=== PATIENT | female | born 1965 | race Caucasian/White ===

== ENCOUNTER 2016-07-21 08:57 | Emergency (ER) | payer BC, OTHER ==
[2016-07-21 09:10] VITALS: BP 145/109
--- NOTE | 2016-07-21 10:06 | CR ---
Cervical spine: AP, lateral and odontoid views of the cervical spine were obtained. Comparison: No previous cervical spine imaging. Multiple surgical clips are seen within the neck. Minimal spondylolisthesis is noted at C3-C4 and C4-C5. Mild disc space narrowing is noted at C6-C7. Vertebral body heights are maintained. No acute fracture or other abnormality is seen. Impression: 1. Slight spondylolisthesis at C3-C4 and C4-C5 which is felt compatible with degenerative apophyseal change. 2. Mild disc space narrowing at C6-C7. 3. Other incidental findings. Diagnostic code #2
--- NOTE | 2016-07-21 10:06 | CR ---
Lumbar spine: AP, lateral and coned-down lateral views centered to the lumbosacral junction were obtained. Mild disc space narrowing is noted at T12-L1. Anterior osteophytes noted at T12-L1. Mild anterior osteophytes are noted at L1-L2. Vertebral body heights and disc spaces otherwise are preserved. Pedicles are intact. Transverse and spinous processes are intact. No subluxation or fracture is seen. Surgical clips are seen from prior cholecystectomy. Impression: 1. Slight degenerative change as noted above. Nothing acute is appreciated on three-view lumbar spine study. Diagnostic code #2
--- NOTE | 2016-07-21 10:14 | EDM.PDOC ---
ED HPI GENERAL MEDICAL PROBLEM - General Chief Complaint: Back Pain or Injury Stated Complaint: BACK INJURY Time Seen by Provider: 07/21/16 09:14 Source of Information: Reports: Patient, RN Notes Reviewed - History of Present Illness INITIAL COMMENTS - FREE TEXT/NARRATIVE: 51-year-old female comes in with neck and back discomfort. 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 She also has been having some neck discomfort he did have some mild tingling in both hands intermittently but that has been more of a chronic problem for her. She did see a chiropractor day or 2 ago felt like that did help numbness and tingling but she does continue to have some 80 discomfort of her neck so continues to have a low back discomfort. She does not have sharp or shooting pain into the legs. She has felt some numbness in both feet but not severe. No fever or chills. no voiding sx. 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, excedrin Lower Back Pain Score (Numeric/FACES): 8 - Related Data Allergies Allergy/AdvReac Type Severity Reaction Status Date / Time codeine Allergy Anaphylactic Verified 07/21/16 09:06 Shock diphenhydramine HCl Allergy Excitabilit Verified 07/21/16 09:06 [From Benadryl] y hydrocodone Allergy Anaphylactic Verified 07/21/16 09:06 Shock oxycodone Allergy Anaphylactic Verified 07/21/16 09:06 Shock promethazine HCl Allergy Excitabilit Verified 07/21/16 09:06 [From Phenergan] y Sulfa (Sulfonamide Allergy Excitabilit Verified 07/21/16 09:06 Antibiotics) y Home Meds: Home Meds Meclizine [Antivert] 25 mg PO TID PRN #15 tab 05/18/14 [Rx] Nitrofurantoin Monohyd/M-Cryst [Macrobid 100 mg Capsule] 100 mg PO BID #20 capsule 05/18/14 [Rx] Ondansetron [Zofran ODT] 4 mg PO Q6H PRN #10 tab.dis 05/18/14 [Rx] Thyroid,Pork [[place] Thyroid] 90 mg PO DAILY 05/18/14 [History] traMADol [Ultram] 50 mg PO ASDIRECTED PRN 05/18/14 [History] Naproxen [Naprosyn] 500 mg PO Q12HR #14 tablet 07/21/16 [Rx] Past Medical History Genitourinary History: Reports: Other (See Below) Other Genitourinary History: kidney surgery Endocrine/Metabolic History: Reports: Other (See Below) Other Endocrine/Metabolic History: thyroid CA Oncologic (Cancer) History: Reports: Thyroid - Past Surgical History GI Surgical History: Reports: Cholecystectomy Endocrine Surgical History: Reports: Thyroidectomy Social & Family History - Tobacco Use Smoking Status *Q: Never Smoker - Caffeine Use Caffeine Use: Reports: Soda - Recreational Drug Use Recreational Drug Use: No ED ROS GENERAL - Review of Systems Review Of Systems: See Below Constitutional: Denies: Fever, Chills HEENT: Reports: No Symptoms Respiratory: Denies: Shortness of Breath Cardiovascular: Denies: Chest Pain GI/Abdominal: Denies: Abdominal Pain, Nausea, Vomiting : Reports: No Symptoms Musculoskeletal: Reports: Neck Pain, Back Pain Skin: Denies: Rash Neurological: Reports: Numbness (Has had intermittent numbness and tingling of her hands and feet) ED EXAM,LOWER BACK PAIN/INJURY - Physical Exam Exam: See Below General Appearance: Alert, No Apparent Distress Throat/Mouth: Normal Inspection Head: Atraumatic. No: Facial Swelling Neck: Supple, Full Range of Motion, Other (For mild soft tissue tenderness bilateral base of neck) Respiratory/Chest: No Respiratory Distress Back Exam: Paraspinal Tenderness (Mild tenderness right low back), Other (No visible spasm, no swelling, no erythema). No: Vertebral Tenderness Extremities: Normal Inspection, Normal Range of Motion Neurological: Alert, No Motor/Sensory Deficits, Other (Mild back tightness with straight leg raising is does not shoot pain down into either lower extremity) Course - Vital Signs Last Recorded V/S: Last Vital Signs Temp 97.1 F 07/21/16 09:06 Pulse 72 07/21/16 09:06 Resp 16 07/21/16 09:06 BP 145/109 H 07/21/16 09:06 Pulse Ox 99 07/21/16 09:06 - Re-Assessments/Exams Free Text/Narrative Re-Assessment/Exam: 07/21/16 11:44 have prescribed Naprosyn to take 500 mg twice a day for one week , she can take Tylenol 3 times daily in addition alternating dosages and also she can take tramadol as previously prescribed as needed for breakthrough pain. I recommended alternating ice and heat. 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 . She would like to do that. I've advised her to do no lifting whatsoever but certainly no lifting more than 20 pounds for the next week. I've offered physical therapy but she would prefer to keep working with a chiropractor. She should than continue to work with a chiropractor until discomfort resolves. Departure - Departure Time of Disposition: 10:10 Disposition: Home, Self-Care 01 Condition: fair Clinical Impression: Strain of lumbar spine Qualifiers: Encounter type: initial encounter Qualified Code(s): S39.012A - Strain of muscle, fascia and tendon of lower back, initial encounter - Discharge Information Prescriptions: Naproxen [Naprosyn] 500 mg PO Q12HR #14 tablet Instructions: Lumbosacral Strain Referrals: Donna Trevino PA-C [Primary Care Provider] - Forms: ED Department Discharge, Return to Work/School Form Additional Instructions: Alternate ice and heat to low back and neck as needed, Naprosyn 500 mg twice daily, take that with food so as not to upset her stomach, Tylenol 1000 mg 2-3 times daily,you may take tramadol in addition to the Naprosyn and Tylenol as needed for further pain relief, continue to work with your chiropractor to try get this to heal more quickly, no lifting more than 20 pounds for the next week , followup with your regular medical provider as needed or return to ED as needed if symptoms worsening in any way. See your chiropractor tomorrow if possible and continue to see your chiropractor until discomfort resolves.
== END 2016-07-21 10:30 | disposition home or self-care (01) ==
LOC: JD.ED 08:57
DX: S39.012A Strain of muscle, fascia and tendon of lower back, initial encounter (principal); E89.0 Postprocedural hypothyroidism; Z85.850 Personal history of malignant neoplasm of thyroid; Z90.49 Acquired absence of other specified parts of digestive tract; Z79.899 Other long term (current) drug therapy; Z88.5 Allergy status to narcotic agent; Z88.6 Allergy status to analgesic agent; Z88.8 Allergy status to other drugs, medicaments and biological substances; X50.0XXA Overexertion from strenuous movement or load, initial encounter; Y92.69 Other specified industrial and construction area as the place of occurrence of the external cause; Y99.0 Civilian activity done for income or pay
CPT/HCPCS: 72040; 72040-26; 72100; 72100-26; 99282; 99283

== ENCOUNTER 2017-08-10 07:25 | Emergency (ER) | payer OTHER, BC ==
[2017-08-10 07:46] VITALS: BP 118/91
[2017-08-10] MEDS ORDERED: Ibuprofen 600 MG Tab PO ONE (08:30)
[2017-08-10] MEDS ORDERED: Sodium Chloride 0.9% 1,000 ML IV ONE (08:30)
[2017-08-10] MEDS ORDERED: Orphenadrine 100 MG Tab.ER PO STA (08:30)
[2017-08-10] MEDS ORDERED: Haloperidol Lactate 5 MG/ML SDV IM ONE (08:30)
[2017-08-10] MEDS ORDERED: Benztropine 1 MG Tab PO STA (08:30)
[2017-08-10] MEDS ORDERED: Ondansetron 4 MG/2 ML SDV IVPUSH ONE (08:30)
--- NOTE | 2017-08-10 08:42 | EDM.PDOC ---
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 She has a history of chronic neck pain and chronic bilateral hand tingling, and is status post a prior low back injury on 07/18/2016. She states that at 20:30 last night, she was helping a patient move backwards, when the patient fell backwards into Ms. Kendall's arms. Ms. Kendall states that she strained her lower back as she lowered the patient to the floor, preventing the patient from falling. She now presents with numbness to her entire left lower extremity, pain to her left groin, and spasms to her mid back. She also states that she developed a headache right after the event. The headache is bitemporal. It is tingling and sharp in character. She has photophobia, but no phonophobia. No visual changes. No nausea or emesis. Other than the tingling and numbness to her left lower extremity, she has no other neurologic changes. She states that this headache is similar to prior migraines, but that this cannot be migraine, as she has not had one in years. The patient states that she took Advil around 23:00 last night, then Excedrin around 03:00 this morning. She states that she also took tramadol. The patient's PCP is Fe Hinton. Upper Back Pain Score (Numeric/FACES): 7 - Related Data Allergies Allergy/AdvReac Type Severity Reaction Status Date / Time codeine Allergy Anaphylactic Verified 07/21/16 09:06 Shock diphenhydramine HCl Allergy Excitabilit Verified 07/21/16 09:06 [From Benadryl] y hydrocodone Allergy Anaphylactic Verified 07/21/16 09:06 Shock oxycodone Allergy Anaphylactic Verified 07/21/16 09:06 Shock promethazine HCl Allergy Excitabilit Verified 07/21/16 09:06 [From Phenergan] y Sulfa (Sulfonamide Allergy Excitabilit Verified 07/21/16 09:06 Antibiotics) y Home Meds: Home Meds Thyroid,Pork [[place] Thyroid] 90 mg PO DAILY 05/18/14 [History] traMADol [Ultram] 50 mg PO ASDIRECTED PRN 05/18/14 [History] Orphenadrine [Norflex] 1 tab PO Q12H PRN #14 tab.er 08/10/17 [Rx] Past Medical History HEENT History: Reports: Impaired Vision Other HEENT History: wear contacts 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: 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: Musculoskeletal History: Reports: Arthritis, Back Pain, Chronic, Neck Pain, Chronic Neurological History: Reports: Migraines Endocrine/Metabolic History: Reports: Hypothyroidism (following thyroidectomy) Oncologic (Cancer) History: Reports: Thyroid (2006) - Past Surgical History GI Surgical History: Reports: Cholecystectomy Female Surgical History: Reports: Endometrial Ablation, Tubal Ligation, Other (See Below) (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 ED EXAM, GENERAL - Physical Exam Exam: See Below Exam Limited By: No Limitations General Appearance: Alert, WD/WN, No Apparent Distress Eye Exam: Bilateral Eye: EOMI, Normal Inspection Ears: Normal External Exam, Hearing Grossly Normal Nose: Normal Inspection, No Blood Throat/Mouth: Normal Inspection, Normal Lips, Normal Voice, No Airway Compromise Head: Atraumatic, Normocephalic Neck: Normal Inspection, Full Range of Motion Respiratory/Chest: No Respiratory Distress Back Exam: Other (No visible abnormality to the patient's back, such as swelling , erythema, ecchymosis, or abrasion. The patient reports mild tenderness to the mid back, at approximately the T8 level, with increased tenderness to the left paraspinous muscles at that level. The patient is able to flex the spine to 90 , and extend to approximately 20. She is able to tilt the spine bilaterally to about 30, and twist the spine bilaterally to about 45. Unilateral knee bend is normal bilaterally. Straight leg raise is negative to 90 bilaterally.) Extremities: Non-Tender, Other (Neurovascular status of the bilateral lower extremity is normal.) Neurological: Alert, Oriented, Normal Cognition, No Motor/Sensory Deficits Psychiatric: Normal Affect Skin Exam: Warm, Dry, Intact, Normal Color, No Rash Course - Vital Signs Last Recorded V/S: Last Vital Signs Temp 36.1 C 08/10/17 07:42 Pulse 83 08/10/17 07:42 Resp 20 08/10/17 07:42 BP 118/91 H 08/10/17 07:42 Pulse Ox 100 08/10/17 07:42 - Orders/Labs/Meds Meds: Medications Discontinued Medications Generic Name Dose Route Start Last Admin Trade Name Freq PRN Reason Stop Dose Admin Benztropine Mesylate 1 mg 08/10/17 08:30 08/10/17 08:54 Cogentin PO 08/10/17 08:31 Not Given ONETIME STA Haloperidol Lactate 5 mg 08/10/17 08:30 08/10/17 08:55 Haldol IM 08/10/17 08:31 Not Given ONETIME ONE Sodium Chloride 1,000 mls @ 999 mls/hr 08/10/17 08:30 08/10/17 08:55 Normal Saline IV 08/10/17 09:30 Not Given ONETIME ONE Ibuprofen 600 mg 08/10/17 08:30 08/10/17 08:53 Motrin PO 08/10/17 08:31 600 mg ONETIME ONE Administration Ondansetron HCl 4 mg 08/10/17 08:30 08/10/17 08:55 Zofran IVPUSH 08/10/17 08:31 Not Given ONETIME ONE Orphenadrine Citrate 100 mg 08/10/17 08:30 08/10/17 08:53 Norflex PO 08/10/17 08:31 100 mg ONETIME STA Administration - Re-Assessments/Exams Free Text/Narrative Re-Assessment/Exam: 08/10/17 08:40 The patient appears to have 2 issues: Her mid back pain with left lower extremity tingling and numbness, and her headache. The patient believes that the two are one and the same problem, as they both began at the same time, however, anatomically and physiologically, I would not be able to explain that. With respect to the patient's mid back pain and left lower extremity tingling, the patient, from a clinical standpoint, has a muscle spasm in her mid back. I cannot explain the tingling to her left lower extremity, however, there are no findings on physical exam to suggest a herniated disc. I am recommending Norflex and ibuprofen, and the patient agreed. I am further recommending that the patient stay active, particularly with swimming, if possible. With respect to the patient's headache, her symptoms are consistent with a migraine, indeed, the patient states that her symptoms are just like prior migraines. She does not, however, believe that her current headache is migrainous, as she has not had a migraine in many years. Nevertheless, the patient has agreed to treatment for a migraine with IM Haldol, oral Cogentin, IV fluid, and IV Zofran. 08/10/17 09:28 Notified by Celena MACARIO that the patient accepted the Norflex and ibuprofen, but refused the Haldol, Cogentin, IV fluid, and Zofran. I discussed this with the patient. She would like to be discharged home with a note for work for tomorrow. Departure - Departure Time of Disposition: 09:28 Disposition: Home, Self-Care 01 Condition: Good Clinical Impression: Back muscle spasm, Migraine headache without aura - Discharge Information Prescriptions: Orphenadrine [Norflex] 1 tab PO Q12H PRN #14 tab.er PRN Reason: Muscle Spasm Instructions: Muscle Cramps and Spasms, [id number], Migraine Headache Referrals: Fe Hinton PA [Primary Care Provider] - Forms: ED Department Discharge, ED Return to Work/School Form Additional Instructions: You were seen in the emergency room for mid-back pain, left lower extremity tingling, and a headache. Based on your history and physical examination, your mid-back pain is due to a muscle spasm. You have been started on the muscle relaxant Norflex. A prescription for Norflex has been sent to the [facility], located in the [email or web address] store. Take one tablet every 12 hours, as prescribed. You have also been started on ibuprofen. Take 2-3 tablets (400-600 mg) every 8 hours, with food, as needed for discomfort. The cause of your left lower extremity tingling sensation is not clear, however , based on your history and physical examination, it is not due to a herniated intervertebral disc. If your symptoms persist, or worsen, you may need a MRI of your back. A note for work has been written for you. It is very important that you stay active. Swimming is best, but walking is good , as well. Based on your history, your headache is MOST LIKELY migrainous in etiology. Treatment for a migraine headache was offered, but declined. We recommend you get plenty of rest today in a dark, quiet, place. Stay well hydrated. Follow-up with your PCP, Fe Hinton, as needed. If any other problems, please do not hesitate to return to the ER.
== END 2017-08-10 09:49 | disposition home or self-care (01) ==
LOC: JD.ED 07:25
DX: G43.009 Migraine without aura, not intractable, without status migrainosus (principal); M62.830 Muscle spasm of back; Z88.5 Allergy status to narcotic agent; Z88.8 Allergy status to other drugs, medicaments and biological substances; Z88.2 Allergy status to sulfonamides
CPT/HCPCS: 99283; A9270

== ENCOUNTER 2017-11-04 12:08 | Emergency (ER) | payer BC ==
[2017-11-04 12:15] VITALS: BP 133/95
[2017-11-04] MEDS ORDERED: HYDROmorphone 0.5 MG/0.5 ML SYRINGE IVPUSH ONE (12:39)
[2017-11-04] MEDS ORDERED: Ondansetron 4 MG/2 ML SDV IVPUSH ONE (12:39)
[2017-11-04] MEDS ORDERED: Alum Hydrox/Mag Hydrox/Simeth 30 ML, Lidocaine 2% 15 ML PO ONE ×2 (12:39)
--- NOTE | 2017-11-04 12:43 | EDM.PDOC ---
ED HPI GENERAL MEDICAL PROBLEM - General Chief Complaint: Abdominal Pain Stated Complaint: [facility] Time Seen by Provider: 11/04/17 12:28 Source of Information: Reports: Patient History Limitations: Reports: No Limitations - History of Present Illness INITIAL COMMENTS - FREE TEXT/NARRATIVE: Patient is a 52-year-old female presents ED complaining of epigastric/ paramedical abd pain. This started at approximately 5:15 this morning. Pain is sharp in nature with no radiation. Pain is constant with waxing and waning. Pain is worse with movement and also palpation. Pain is relieved with stretching. There's been no known activities or trauma that precipitated this. She has some acid reflux but states that is normal. She has been constipated for quite some time. States she had a bowel movement today with only 3 hard pieces of stool present. No diarrhea or blood present. She's been mildly nauseated with no emesis. Denies any chest pain, fever, shortness of breath, dysuria, or any additional complaints. She's had her gallbladder removed. She's never had EGD or colonoscopy. She does not smoke use alcohol or recreational drugs. She has a history of tubal ligation. No bariatric surgeries. 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 (see below) Other Treatments MEMORIAL COUNSELOR: zofan Upper Abdomen Pain Score (Numeric/FACES): 9 - Related Data Allergies Allergy/AdvReac Type Severity Reaction Status Date / Time codeine Allergy Anaphylactic Verified 07/21/16 09:06 Shock diphenhydramine HCl Allergy Excitabilit Verified 07/21/16 09:06 [From Benadryl] y hydrocodone Allergy Anaphylactic Verified 07/21/16 09:06 Shock oxycodone Allergy Anaphylactic Verified 07/21/16 09:06 Shock promethazine HCl Allergy Excitabilit Verified 07/21/16 09:06 [From Phenergan] y Sulfa (Sulfonamide Allergy Excitabilit Verified 07/21/16 09:06 Antibiotics) y Home Meds: Home Meds Thyroid,Pork [Dale Thyroid] 90 mg PO DAILY 05/18/14 [History] traMADol [Ultram] 50 mg PO ASDIRECTED PRN 05/18/14 [History] Orphenadrine [Norflex] 1 tab PO Q12H PRN #14 tab.er 08/10/17 [Rx] Dicyclomine [Bentyl] 10 mg PO QID PRN #12 cap 11/04/17 [Rx] Ketorolac [Toradol] 10 mg PO Q6H PRN #4 tab 11/04/17 [Rx] Latanoprost [Xalatan 0.005% Ophth Soln] 1 drop TOP BEDTIME 11/04/17 [History] Ondansetron [Zofran ODT] 4 mg PO Q6H PRN #12 tab.dis 11/04/17 [Rx] Past Medical History HEENT History: Reports: Impaired Vision Other HEENT History: wear contacts Genitourinary History: Reports: Other (See Below) Other Genitourinary History: kidney surgery 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: Musculoskeletal History: Reports: Arthritis, Back Pain, Chronic, Neck Pain, Chronic Neurological History: Reports: Migraines Endocrine/Metabolic History: Reports: Hypothyroidism Other Endocrine/Metabolic History: thyroid CA Oncologic (Cancer) History: Reports: Thyroid - Past Surgical History GI Surgical History: Reports: Cholecystectomy Female Surgical History: Reports: Endometrial Ablation, Tubal Ligation, Other (See Below) Endocrine Surgical History: Reports: Thyroidectomy Social & Family History - Tobacco Use Smoking Status *Q: Never Smoker - Caffeine Use Caffeine Use: Reports: Soda - Living Situation & Occupation Living situation: Reports: , with Significant Other (Boyfriend) 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 Denies: Black Stool, Bloody Stool, Diarrhea, Decreased Appetite, Difficulty Swallowing, Hematemesis, Hematochezia, Melena, Mucous in Stool, Stool Incontinence, Vomiting : Reports: No Symptoms Musculoskeletal: Reports: No Symptoms Skin: Reports: No Symptoms ED EXAM, GI/ABD - Physical Exam Exam: See Below Exam Limited By: No Limitations General Appearance: Alert, WD/WN, No Apparent Distress Ears: Hearing Grossly Normal Nose: Normal Inspection Throat/Mouth: Normal Voice, No Airway Compromise Neck: Normal Inspection, Supple Respiratory/Chest: No Respiratory Distress, Lungs Clear, Normal Breath Sounds, Chest Non-Tender Cardiovascular: Normal Peripheral Pulses, Regular Rate, Rhythm, No Murmur GI/Abdominal Exam: Soft, No Organomegaly, No Distention, Tender (Epigastric periumbilical region. Negative McBurney's point.), Abnormal Bowel Sounds ( Hyperactive) Back Exam: Normal Inspection. No: CVA Tenderness (L), CVA Tenderness (R) Extremities: Normal Inspection Neurological: Alert, Oriented, CN II-XII Intact, Normal Cognition, No Motor/ Sensory Deficits Psychiatric: Normal Affect, Normal Mood Skin Exam: Warm, Dry, Intact, Normal Color, No Rash Course - Vital Signs Last Recorded V/S: Last Vital Signs Temp 97.7 F 11/04/17 12:14 Pulse 82 11/04/17 12:14 Resp 20 11/04/17 12:14 BP 133/95 H 11/04/17 12:14 Pulse Ox 99 11/04/17 12:14 - Orders/Labs/Meds Labs: Laboratory Tests 11/04/17 11/04/17 Range/Units 13:50 13:50 WBC 5.09 (3.98-10.04) K/mm3 RBC 4.38 (3.98-5.22) M/mm3 Hgb 13.4 (11.2-15.7) gm/L Hct 38.6 (34.1-44.9) % MCV 88.1 (79.4-94.8) fl MCH 30.6 (25.6-32.2) pg MCHC 34.7 (32.2-35.5) g/dl RDW Std Deviation 38.2 (36.4-46.3) fL Plt Count 258 (182-369) K/mm3 MPV 9.5 (9.4-12.3) fl Neutrophils % (Manual) 88 H (40-60) % Band Neutrophils % 0 (0-10) % Lymphocytes % (Manual) 10 L (20-40) % Atypical Lymphs % 0 % Monocytes % (Manual) 1 L (2-10) % Eosinophils % (Manual) 1 (0.7-5.8) % Basophils % (Manual) 0 L (0.1-1.2) Platelet Estimate Adequate RBC Morph Comment Normal Sodium 142 (136-145) mEq/L Potassium 3.7 (3.5-5.1) mEq/L Chloride 107 (98-107) mEq/L Carbon Dioxide 27 (21-32) mEq/L Anion Gap 11.7 (5-15) BUN 13 (7-18) mg/dL Creatinine 0.8 (0.55-1.02) mg/dL Est Cr Clr Drug Dosing 67.27 mL/min Estimated GFR (MDRD) > 60 (>60) mL/min BUN/Creatinine Ratio 16.3 (14-18) Glucose 116 H (74-106) mg/dL Calcium 9.4 (8.5-10.1) mg/dL Total Bilirubin 0.5 (0.2-1.0) mg/dL AST 23 (15-37) U/L ALT 19 (14-59) U/L Alkaline Phosphatase 80 (46-116) U/L C-Reactive Protein 0.2 (<1.0) mg/dL Total Protein 6.8 (6.4-8.2) g/dl Albumin 3.6 (3.4-5.0) g/dl Globulin 3.2 gm/dL Albumin/Globulin Ratio 1.1 (1-2) Lipase 114 (73-393) U/L Meds: Medications Discontinued Medications Generic Name Dose Route Start Last Admin Trade Name Freq PRN Reason Stop Dose Admin Al Hydroxide/Mg Hydroxide 30 0 ml 11/04/17 12:39 11/04/17 13:02 ml/ Lidocaine HCl 15 ml PO 11/04/17 12:40 45 ml ONETIME ONE Administration Diatrizoate Meglum/Diatrizoate Sod 120 ml 11/04/17 14:58 11/04/17 15:18 Gastrografin 37% PO 11/04/17 14:59 90 ml ONETIME ONE Administration Hydromorphone HCl 0.5 mg 11/04/17 12:39 11/04/17 12:59 Dilaudid IVPUSH 11/04/17 12:40 0.5 mg ONETIME ONE Administration Sodium Chloride 1,000 mls @ 500 mls/hr 11/04/17 12:45 11/04/17 12:59 Normal Saline IV 500 mls/hr ASDIRECTED MEENA Administration Iopamidol 100 ml 11/04/17 14:58 11/04/17 15:19 Isovue-300 (61%) IVPUSH 11/04/17 14:59 100 ml ONETIME ONE Administration Ondansetron HCl 4 mg 11/04/17 12:39 11/04/17 13:05 Zofran IVPUSH 11/04/17 12:40 4 mg ONETIME ONE Administration Sodium Chloride 10 ml 11/04/17 14:58 11/04/17 15:19 Saline Flush FLUSH 10 ml ONETIME PRN Administration IV FLUSH - Re-Assessments/Exams Free Text/Narrative Re-Assessment/Exam: IV established with normal saline 500 mL per hour. Dilaudid 0.5 mg IVP and Zofran 4 mg IVP ordered. GI cocktail by mouth.. Initial labs and studies will include: CBC, chem 14, CRP, lipase, UA, and 2 view of the abdomen. X-ray of the abdomen shows some dilated small bowel concerning for obstruction. Few air fluid levels. Patient obtained no relief with the GI cocktail. Suggest is not gastritis related. CT the abdomen and pelvis will be ordered with oral and IV contrast. Labs reviewed: CBC essentially normal. CMP was essentially normal as well. CRP 0.2. Lipase 114. Ordered CT of the abdomen and pelvis with oral and IV contrast. CT abdomen and pelvis impression: Nothing acute is appreciated on CT study of the abdomen and pelvis. 1545 reassessment, patient is resting comfortably in bed. Pain is well- controlled. Vital signs are stable. She is ready be discharged home. She is arranging a ride.The patient remained hemodynamically stable while under my care in the E.D. I discussed the concerning symptoms for which to returnto the E.D. with the patient. The patient verbalized understanding. All questions were answered. Departure - Departure Time of Disposition: 16:00 Disposition: Home, Self-Care 01 Condition: Good Clinical Impression: Abdominal pain of unknown cause Nausea & vomiting Qualifiers: Vomiting type: unspecified Vomiting Intractability: non-intractable Qualified Code(s): R11.2 - Nausea with vomiting, unspecified - Discharge Information Prescriptions: Dicyclomine [Bentyl] 10 mg PO QID PRN #12 cap PRN Reason: Abdominal Pain Ketorolac [Toradol] 10 mg PO Q6H PRN #4 tab PRN Reason: Pain (Severe 7-10) Ondansetron [Zofran ODT] 4 mg PO Q6H PRN #12 tab.dis PRN Reason: Nausea Instructions: Abdominal Pain, Adult, [id number], Nausea and Vomiting, Adult Referrals: Hafsa Hinton PA [Primary Care Provider] - Forms: ED Department Discharge Additional Instructions: Do not have clear diagnosis for abdominal discomfort. You had no relief with the GI cocktail suggesting this was not related to gastritis. Labs and CT study of the abdomen were essentially normal. Relief of discomfort was obtained with IV Dilaudid. On discharge continue taking the tramadol as prescribed for pain. May utilize Bentyl one tablet every 6 hours for abd pain as well. Zofran 1 tablet every 6 hours for nausea and vomiting. I also prescribed a short course of Toradol one tab every 6 hours for pain as well. Please take the Toradol with plenty of water and food. Follow-up with your PCP this coming week for reevaluation if symptoms persist. Suggest liquid diet for the next 24 hours advancing then to a bland diet for 24 hours then to a normal diet thereafter as tolerated. Please return back to ED if you develop any new or worsening symptoms. No driving today.
[2017-11-04] MEDS ORDERED: Sodium Chloride 0.9% 1,000 ML IV SCH (12:45)
[2017-11-04] MEDS ORDERED: Diatrizoate Meglumine/Diatrizoate Sodium 37% 120 ML Bottle PO ONE (14:58)
[2017-11-04] MEDS ORDERED: Iopamidol 612 MG/ML 100 ML Bottle IVPUSH ONE (14:58)
[2017-11-04] MEDS ORDERED: Sodium Chloride 0.9% 10 ML Syringe FLUSH PRN (14:58)
--- NOTE | 2017-11-04 16:24 | CT ---
CT abdomen and pelvis Technique: Multiple axial sections were obtained from above the dome of the diaphragm inferiorly through the pubic symphysis. Intravenous contrast was utilized. Small amount of oral contrast is seen. Delayed images were obtained through the bladder. Comparison: Prior CT abdomen and pelvis exam of 05/28/10. Findings: Visualized lung bases are clear. Liver shows no discrete abnormality. Minimal intrahepatic biliary duct dilatation is seen. Common bile duct measures about 6.9 mm. These findings are likely due to residual change from prior cholecystectomy. Kidneys show symmetric contrast enhancement. Stable scarring noted within the left kidney. Adrenal glands show no nodule. Pancreas is within normal limits. Spleen appears normal. Aorta shows no aneurysm with mild atherosclerotic change. No retroperitoneal adenopathy or mesenteric abnormalities are seen. No pelvic mass or adenopathy is seen. Appendix is not visualized with certainty. No free fluid or inflammatory change is seen within the abdomen or pelvis. Bone window settings were reviewed which appears within normal limits for the patient's age. Impression: 1. Incidental findings. Nothing acute is appreciated on CT study of the abdomen and pelvis. Diagnostic code #2
--- NOTE | 2017-11-08 14:07 | CR ---
Abdomen: Supine and upright views of the abdomen were obtained. Dilated proximal small bowel loops are seen. This appears as a small bowel obstruction on the plain film exam but appears less prominent on subsequent CT exam and may represent slight ileus. Please correlate with the patient's symptoms. Surgical clips are seen from prior cholecystectomy. Bowel gas pattern is otherwise unremarkable. No free air is seen. Bony structures are unremarkable. Impression: 1. Dilated proximal small bowel as described above. Diagnostic code #3
== END 2017-11-04 16:33 | disposition home or self-care (01) ==
LOC: SUPCPDRO 12:08 → JD.ED 12:08
DX: R10.10 Upper abdominal pain, unspecified (principal); R11.2 Nausea with vomiting, unspecified; Z88.5 Allergy status to narcotic agent; Z98.51 Tubal ligation status; Z88.2 Allergy status to sulfonamides; Z88.8 Allergy status to other drugs, medicaments and biological substances; Z79.899 Other long term (current) drug therapy
CPT/HCPCS: 36415; 74019; 74177; 80053; 83690; 85007; 85027; 86140; 96361; 96374; 96375; 99285; A9270; J1170; J2405; J7040; J7050; Q9963; Q9967; 99284

== ENCOUNTER 2019-05-11 08:14 | Emergency (ER) | payer OTHER, BC ==
[2019-05-11 08:27] VITALS: BP 130/98; PULSE 70
--- NOTE | 2019-05-11 08:53 | EDM.PDOC ---
ED HPI GENERAL MEDICAL PROBLEM - General Chief Complaint: Back Pain or Injury Stated Complaint: BACK PAIN Time Seen by Provider: 05/11/19 08:26 Source of Information: Reports: Patient History Limitations: Reports: No Limitations - History of Present Illness INITIAL COMMENTS - FREE TEXT/NARRATIVE: The patient presents with upper low back pain. This started on Tuesday. She was at work and slipped and fell on some papers that fell on the floor. She did not hit her head or hurt her neck. She does have pain to the upper low back. She has no numbness or weakness. She has no bowel or bladder problems. Onset: Sudden Duration: Day(s): Location: Reports: Back Quality: Reports: Sharp Severity: Moderate Improves with: Reports: Immobilization Worsens with: Reports: Movement Context: Reports: Trauma (Slipped and fell and landed on her back) Associated Symptoms: Reports: No Other Symptoms Middle Back Pain Score (Numeric/FACES): 4 - Related Data Allergies Allergy/AdvReac Type Severity Reaction Status Date / Time codeine Allergy Anaphylactic Verified 05/11/19 08:27 Shock diphenhydramine HCl Allergy Excitabilit Verified 05/11/19 08:27 [From Benadryl] y hydrocodone Allergy Anaphylactic Verified 05/11/19 08:27 Shock oxycodone Allergy Anaphylactic Verified 05/11/19 08:27 Shock promethazine HCl Allergy Excitabilit Verified 05/11/19 08:27 [From Phenergan] y Sulfa (Sulfonamide Allergy Excitabilit Verified 05/11/19 08:27 Antibiotics) y Home Meds: Home Meds Thyroid,Pork [Conifer Thyroid] 90 mg PO DAILY 05/18/14 [History] traMADol [Ultram] 50 mg PO ASDIRECTED PRN 05/18/14 [History] Eye Dropvfor Glaucoma 1 drop EYEBOTH BEDTIME 05/11/19 [History] Orphenadrine [Norflex] 100 mg PO BID PRN #20 tab 05/11/19 [Rx] Past Medical History HEENT History: Reports: Impaired Vision Other HEENT History: wear contacts Genitourinary History: Reports: Other (See Below) Other Genitourinary History: kidney 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: Musculoskeletal History: Reports: Arthritis, Back Pain, Chronic, Neck Pain, Chronic Neurological History: Reports: Migraines Endocrine/Metabolic History: Reports: Hypothyroidism Other Endocrine/Metabolic History: thyroid CA Oncologic (Cancer) History: Reports: Thyroid - Past Surgical History GI Surgical History: Reports: Cholecystectomy Female Surgical History: Reports: Endometrial Ablation, Tubal Ligation, Other (See Below) Endocrine Surgical History: Reports: Thyroidectomy Social & Family History - Tobacco Use Smoking Status *Q: Never Smoker - Caffeine Use Caffeine Use: Reports: Soda - Recreational Drug Use Recreational Drug Use: No - Living Situation & Occupation Living situation: Reports: , with Significant Other (Boyfriend) 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 GENERAL - Review of Systems Review Of Systems: See Below Constitutional: Reports: No Symptoms HEENT: Reports: No Symptoms Respiratory: Reports: No Symptoms Cardiovascular: Reports: No Symptoms Endocrine: Reports: No Symptoms GI/Abdominal: Reports: No Symptoms : Reports: No Symptoms Musculoskeletal: Reports: Back Pain ED EXAM,LOWER BACK PAIN/INJURY - Physical Exam Exam: See Below Exam Limited By: No Limitations General Appearance: Alert, No Apparent Distress Ears: Normal External Exam Nose: Normal Inspection Head: Atraumatic, Normocephalic Neck: Normal Inspection Respiratory/Chest: No Respiratory Distress, Lungs Clear, Normal Breath Sounds Cardiovascular: Regular Rate, Rhythm, No Edema, No Murmur GI/Abdominal: Soft, Non-Tender, No Organomegaly, No Mass Back Exam: Vertebral Tenderness (upper low back) Extremities: Normal Inspection Course - Vital Signs Last Recorded V/S: Last Vital Signs Temp 96.9 F 05/11/19 08:23 Pulse 70 05/11/19 08:23 Resp 18 05/11/19 08:23 BP 130/98 H 05/11/19 08:23 Pulse Ox 100 05/11/19 08:23 - Orders/Labs/Meds Orders: Active Orders 24 hr Category Date Time Status Lumbar Spine 2 or 3V [CR] Stat Exams 05/11/19 08:45 Taken - Re-Assessments/Exams Free Text/Narrative Re-Assessment/Exam: 05/11/19 08:53 I have ordered an x-ay of her L-spine. 05/11/19 09:20 The x-ray looks good. I will get her on some norflex. Departure - Departure Time of Disposition: 09:25 Disposition: Home, Self-Care 01 Condition: Good Clinical Impression: Fall Qualifiers: Encounter type: initial encounter Qualified Code(s): W19.XXXA - Unspecified fall, initial encounter Low back pain Qualifiers: Chronicity: acute Back pain laterality: midline Sciatica presence: without sciatica Qualified Code(s): M54.5 - Low back pain - Discharge Information *PRESCRIPTION DRUG MONITORING PROGRAM REVIEWED*: No *COPY OF PRESCRIPTION DRUG MONITORING REPORT IN PATIENT MIGUEL: No Prescriptions: Orphenadrine [Norflex] 100 mg PO BID PRN #20 tab PRN Reason: Pain Referrals: Denise Dalal PA-C [Primary Care Provider] - 1 Week Forms: ED Department Discharge Additional Instructions: Take motrin or tylenol fro pain. Take the norflex 2 times per day as needed for pain. Please return if you are worse. Sepsis Event Note - Evaluation Sepsis Screening Result: No Definite Risk - Focused Exam Vital Signs: Vital Signs Temp Pulse Resp BP Pulse Ox 05/11/19 08:23 96.9 F 70 18 130/98 H 100 Date Exam was Performed: 05/11/19 Time Exam was Performed: 09:20 - My Orders Last 24 Hours: My Active Orders 05/11/19 08:45 Lumbar Spine 2 or 3V [CR] Stat - Assessment/Plan Last 24 Hours: My Active Orders 05/11/19 08:45 Lumbar Spine 2 or 3V [CR] Stat
--- NOTE | 2019-05-11 11:35 | CR ---
Lumbar spine: AP and lateral views of the lumbar spine were obtained. Comparison: Prior lumbar spine plain film study of 07/21/16. Disc space narrowing is noted at T12-L1. Other disc spaces are maintained within the lumbar spine. Minimal anterior osteophytes are noted at T12-L1. Pedicles are intact. Transverse and spinous processes appear intact. No subluxation or acute fracture is appreciated. Surgical clips are noted from prior cholecystectomy. Impression: 1. Slight degenerative change. 2. Nothing acute is appreciated on two-view lumbar spine study. Diagnostic code #2 This report was dictated in [place] Standard Time
== END 2019-05-11 09:42 | disposition home or self-care (01) ==
LOC: JD.ED 08:14
DX: M54.5 Low back pain (principal); E03.9 Hypothyroidism, unspecified; C73 Malignant neoplasm of thyroid gland; Z88.5 Allergy status to narcotic agent; Z88.8 Allergy status to other drugs, medicaments and biological substances; Z88.2 Allergy status to sulfonamides; Z79.899 Other long term (current) drug therapy; Z90.89 Acquired absence of other organs; W01.0XXA Fall on same level from slipping, tripping and stumbling without subsequent striking against object, initial encounter
CPT/HCPCS: 72100; 72100-26; 99283

== ENCOUNTER 2021-02-14 08:51 | Emergency (ER) | payer BC ==
[2021-02-14] MEDS ORDERED: Ondansetron 4 MG/2 ML SDV IVPUSH ONE (09:25)
[2021-02-14] MEDS ORDERED: Sodium Chloride 0.9% 10 ML Syringe FLUSH PRN (09:25)
[2021-02-14] MEDS ORDERED: Sodium Chloride 0.9% 1,000 ML IV SCH (09:30)
[2021-02-14] MEDS ORDERED: Pantoprazole 40 MG Vial IVPUSH ONE (09:34)
--- NOTE | 2021-02-14 09:42 | EDM.PDOC ---
ED HPI GENERAL MEDICAL PROBLEM - General Chief Complaint: Gastrointestinal Problem Stated Complaint: VOMITING BLOOD IN STOOL Time Seen by Provider: 02/14/21 09:26 Source of Information: Reports: Patient History Limitations: Reports: No Limitations - History of Present Illness INITIAL COMMENTS - FREE TEXT/NARRATIVE: The patient presents with abdominal discomfort and bloody stools. This started on . 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 She has been on augmentin for 4 days. Two days ago she started with looses stools and then she developed blood mixed in the stool. She has some mild epigastric discomfort. She has some nausea but no vomiting. She is also dizzy. She has no fever, chills, cough, chest pain, or shortness of breath. She was taking ibuprofen for the tooth pain. Onset: Gradual Duration: Day(s): (3) Location: Reports: Abdomen Quality: Reports: Other (discomfort) Severity: Mild Improves with: Reports: None Worsens with: Reports: None Associated Symptoms: Reports: Nausea/Vomiting. Denies: Chest Pain, Cough, Fever/Chills, Headaches, Shortness of Breath Upper Abdomen Pain Score (Numeric/FACES): 2 - Related Data Allergies Allergy/AdvReac Type Severity Reaction Status Date / Time codeine Allergy Anaphylactic Verified 02/14/21 09:29 Shock diphenhydramine HCl Allergy Excitabilit Verified 02/14/21 09:29 [From Benadryl] y hydrocodone Allergy Anaphylactic Verified 02/14/21 09:29 Shock oxycodone Allergy Anaphylactic Verified 02/14/21 09:29 Shock promethazine HCl Allergy Excitabilit Verified 02/14/21 09:29 [From Phenergan] y Sulfa (Sulfonamide Allergy Excitabilit Verified 02/14/21 09:29 Antibiotics) y Home Meds: Home Meds Thyroid,Pork [[place] Thyroid] 90 mg PO DAILY 05/18/14 [History] traMADol [Ultram] 50 mg PO TID PRN 05/18/14 [History] Amoxicillin/Clavulanate K [Augmentin 875-125 MG] 125 - 875 mg PO BID 02/14/21 [History] Aspirin/Acetaminophen/Caffeine [Headache Relief Gelcap] 1 tab PO ASDIRECTED PRN 02/14/21 [History] Brimonidine [Alphagan P 0.1% Ophth Soln] 1 drop EYEBOTH BEDTIME 02/14/21 [History] Famotidine 20 mg PO DAILY 02/14/21 [History] Ibuprofen 200 mg PO ASDIRECTED PRN 02/14/21 [History] Omeprazole Magnesium [Prilosec Otc] 40 mg PO DAILY #30 tablet. 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: Musculoskeletal History: Reports: Arthritis, Back Pain, Chronic, Neck Pain, Chronic Neurological History: Reports: Migraines Endocrine/Metabolic History: Reports: Hypothyroidism Other Endocrine/Metabolic History: thyroid CA Oncologic (Cancer) History: Reports: Thyroid - Past Surgical History GI Surgical History: Reports: Cholecystectomy Female Surgical History: Reports: Endometrial Ablation, Tubal Ligation, Other (See Below) Endocrine Surgical History: Reports: Thyroidectomy Social & Family History - Tobacco Use Tobacco Use Status *Q: Never Tobacco User - Caffeine Use Caffeine Use: Reports: Coffee - Recreational Drug Use Recreational Drug Use: No - Living Situation & Occupation Living situation: Reports: , with Significant Other (Boyfriend) 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 Denies: Vomiting : Reports: No Symptoms Musculoskeletal: Reports: No Symptoms ED EXAM, GI/ABD - Physical Exam Exam: See Below Exam Limited By: No Limitations General Appearance: Alert, No Apparent Distress Ears: Normal External Exam Nose: Normal Inspection Head: Atraumatic, Normocephalic Neck: Normal Inspection Respiratory/Chest: No Respiratory Distress, Lungs Clear, Normal Breath Sounds Cardiovascular: Regular Rate, Rhythm, No Edema, No Murmur GI/Abdominal Exam: Soft, Non-Tender, No Organomegaly, No Mass Back Exam: Normal Inspection Extremities: Normal Inspection Course - Vital Signs Last Recorded V/S: Last Vital Signs Temp 97.3 F 02/14/21 09:06 Pulse 110 H 02/14/21 09:06 Resp 18 02/14/21 09:06 BP 102/90 02/14/21 09:06 Pulse Ox 100 02/14/21 09:06 Orthostatic Blood Pressure [ 83/56 Standing] Orthostatic Blood Pressure [ 105/74 Sitting] Orthostatic Blood Pressure [ 100/73 Supine] - Orders/Labs/Meds Orders: Active Orders 24 hr Category Date Time Status Orthostatic Vital Signs [RC] ASDIRECTED Care 02/14/21 09:26 Active Peripheral IV Care [RC] . DIRECTED Care 02/14/21 09:26 Active STOOL CULTURE/SHIGA TOXIN [MREF] Stat Lab 02/14/21 10:10 Ordered Sodium Chloride 0.9% [Saline Flush] Med 02/14/21 09:25 Active 10 ml FLUSH ASDIRECTED PRN Peripheral IV Insertion Adult [OM.PC] Stat Oth 02/14/21 09:26 Ordered Medication Orders Sodium Chloride (Sodium Chloride 0.9% 10 Ml Syringe) 10 ml FLUSH ASDIRECTED PRN PRN Reason: Keep Vein Open Last Admin: 02/14/21 09:26 Dose: 10 ml Documented by: SHAKA Labs: Laboratory Tests 02/14/21 02/14/21 02/14/21 Range/Units 09:25 09:25 10:10 WBC 4.81 (3.98-10.04) K/mm3 RBC 2.54 L (3.98-5.22) M/mm3 Hgb 7.8 L D (11.2-15.7) gm/dl Hct 23.1 L (34.1-44.9) % MCV 90.9 (79.4-94.8) fl MCH 30.7 (25.6-32.2) pg MCHC 33.8 (32.2-35.5) g/dl RDW Std Deviation 39.8 (36.4-46.3) fL Plt Count 232 (182-369) K/mm3 MPV 10.0 (9.4-12.3) fl Neut % (Auto) 52.0 (34.0-71.1) % Lymph % (Auto) 41.6 (19.3-51.7) % [place] % (Auto) 5.6 (4.7-12.5) % Eos % (Auto) 0.6 L (0.7-5.8) Baso % (Auto) 0.2 (0.1-1.2) % Neut # (Auto) 2.50 (1.56-6.13) K/mm3 Lymph # (Auto) 2.00 (1.18-3.74) K/mm3 [place] # (Auto) 0.27 (0.24-0.36) K/mm3 Eos # (Auto) 0.03 L (0.04-0.36) K/mm3 Baso # (Auto) 0.01 (0.01-0.08) K/mm3 Sodium 140 (136-145) mEq/L Potassium 3.1 L (3.5-5.1) mEq/L Chloride 107 (98-107) mEq/L Carbon Dioxide 25 (21-32) mEq/L Anion Gap 11.1 (5-15) BUN 24 H (7-18) mg/dL Creatinine 0.8 (0.55-1.02) mg/dL Est Cr Clr Drug Dosing 64.95 mL/min Estimated GFR (MDRD) > 60 (>60) mL/min BUN/Creatinine Ratio 30.0 H (14-18) Glucose 123 H (70-99) mg/dL Calcium 8.0 L (8.5-10.1) mg/dL Magnesium 1.7 L (1.8-2.4) mg/dL Total Bilirubin 0.3 (0.2-1.0) mg/dL AST 18 (15-37) U/L ALT 17 (14-59) U/L Alkaline Phosphatase 44 L (46-116) U/L C-Reactive Protein <0.2 (<1.0) mg/dL Total Protein 5.9 L (6.4-8.2) g/dl Albumin 3.3 L (3.4-5.0) g/dl Globulin 2.6 gm/dL Albumin/Globulin Ratio 1.3 (1-2) Lipase 67 L (73-393) U/L HCG, Quant 3.0 mIU/mL C.difficile [id number] Presumptive negative C. difficile Tox (PCR) Negative Meds: Medications Generic Name Dose Route Start Last Admin Trade Name Freq PRN Reason Stop Dose Admin Sodium Chloride 10 ml 02/14/21 09:25 02/14/21 09:26 Sodium Chloride 0.9% 10 Ml Syringe FLUSH 10 ml ASDIRECTED PRN Administration Keep Vein Open Discontinued Medications Generic Name Dose Route Start Last Admin Trade Name Gracia PRN Reason Stop Dose Admin Sodium Chloride 1,000 mls @ 999 mls/hr 02/14/21 09:30 02/14/21 09:52 Normal Saline IV 02/14/21 10:29 999 mls/hr Q1H MEENA Administration Ondansetron HCl 4 mg 02/14/21 09:25 02/14/21 09:46 Ondansetron 4 Mg/2 Ml Sdv IVPUSH 02/14/21 09:26 4 mg ONETIME ONE Administration Pantoprazole Sodium 80 mg 02/14/21 09:34 02/14/21 09:48 Pantoprazole 40 Mg Vial IVPUSH 02/14/21 09:35 80 mg BOLUS ONE Administration - Re-Assessments/Exams Free Text/Narrative Re-Assessment/Exam: 02/14/21 09:44 I ordered an IV NS 1L bolus, zofran 4mg IV, protonix 80mg IV, labs and stool studies. 02/14/21 11:39 Her Hgb was low at 7.8. It was normal at 12 over a year ago. Her K was a little low at 3.1. Her magnesium was 1.7. Her lipase was normal. Her C-dif was negative. She feels better. She had some black stool now. She wants to go home and try it. I will get her on prilosec and have her stop using the ibuprofen. She still has a dental infection and I feel it is safe to take the augmentin. Departure - Departure Time of Disposition: 11:45 Disposition: Home, Self-Care 01 Condition: Good Clinical Impression: Dental abscess, Pain, dental, GI bleed due to NSAIDs - Discharge Information *PRESCRIPTION DRUG MONITORING PROGRAM REVIEWED*: Not Applicable *COPY OF PRESCRIPTION DRUG MONITORING REPORT IN PATIENT MIGUEL: Not Applicable Prescriptions: Omeprazole Magnesium [Prilosec Otc] 40 mg PO DAILY #30 tablet. Referrals: PCP,None [Primary Care Provider] - Denise Dalal PA-C [Physician Manager Adult] - 2 Days Forms: ED Department Discharge Additional Instructions: Stop taking the ibuprofen. Try tylenol or tramadol for your pain. Take the augmentin as prescribed for your dental abscess. Take the prilosec 40mg daily for 15 days. Drink plenty of fluids. Eat a bland diet and try to avoid anything heavy and spicy. Please return if you are worse. Have your hemoglobin rechecked on Tuesday. See Maryan or come to the ER. Sepsis Event Note (ED) - Focused Exam Vital Signs: Vital Signs Temp Pulse Resp BP Pulse Ox 02/14/21 09:06 97.3 F 110 H 18 102/90 100 - My Orders Last 24 Hours: My Active Orders 02/14/21 09:25 Sodium Chloride 0.9% [Saline Flush] 10 ml FLUSH ASDIRECTED PRN 02/14/21 09:26 Orthostatic Vital Signs [RC] ASDIRECTED Peripheral IV Care [RC] . DIRECTED Peripheral IV Insertion Adult [OM.PC] Stat 02/14/21 10:10 STOOL CULTURE/SHIGA TOXIN [MREF] Stat - Assessment/Plan Last 24 Hours: My Active Orders 02/14/21 09:25 Sodium Chloride 0.9% [Saline Flush] 10 ml FLUSH ASDIRECTED PRN 02/14/21 09:26 Orthostatic Vital Signs [RC] ASDIRECTED Peripheral IV Care [RC] . DIRECTED Peripheral IV Insertion Adult [OM.PC] Stat 02/14/21 10:10 STOOL CULTURE/SHIGA TOXIN [MREF] Stat
[2021-02-14 12:26] VITALS: BP 99/68; PULSE 83
== END 2021-02-14 12:20 | disposition home or self-care (01) ==
LOC: JD.ED 08:51
DX: K92.2 Gastrointestinal hemorrhage, unspecified (principal); T39.395A Adverse effect of other nonsteroidal anti-inflammatory drugs [NSAID], initial encounter; K04.7 Periapical abscess without sinus; M19.90 Unspecified osteoarthritis, unspecified site; E03.9 Hypothyroidism, unspecified; Z88.5 Allergy status to narcotic agent; Z88.8 Allergy status to other drugs, medicaments and biological substances; Z88.2 Allergy status to sulfonamides; Z79.82 Long term (current) use of aspirin; Z79.899 Other long term (current) drug therapy
CPT/HCPCS: 36415; 80053; 83690; 83735; 84702; 85025; 86140; 87045; 87046; 87493; 87899; 96374; 96375; 99284; C9113; J2405; J7030

== ENCOUNTER 2021-02-15 06:47 | Inpatient (IN) | payer BC ==
[2021-02-15] MEDS ORDERED: Sodium Chloride 0.9% 10 ML Syringe FLUSH PRN ×2 (07:02→09:10)
--- NOTE | 2021-02-15 07:09 | EDM.PDOC ---
ED HPI GENERAL MEDICAL PROBLEM - General Chief Complaint: Cardiovascular Problem Stated Complaint: BLOOD IN STOOL Time Seen by Provider: 02/15/21 06:58 Source of Information: Reports: Patient History Limitations: Reports: No Limitations - History of Present Illness INITIAL COMMENTS - FREE TEXT/NARRATIVE: The patient presents for generalized weakness, anemia and GI bleed. She was seen here yesterday for the same. She had a Hgb of 7.8. She had a GI bleed. She has a dental abscess and was taking augmentin and Ibuprofen for the pain. I feel that she had upper GI bleed from the NSAIDs. She elected to go home. She had no more bloody stool but she is more weak and pale and her blood pressure was low. She has no fever, chills, cough, chest pain, or shortness of breath. The symptoms did start on . Onset: Gradual Duration: Day(s): Severity: Moderate Improves with: Reports: None Worsens with: Reports: None Associated Symptoms: Reports: No Other Symptoms - Related Data Allergies Allergy/AdvReac Type Severity Reaction Status Date / Time codeine Allergy Anaphylactic Verified 02/15/21 06:59 Shock diphenhydramine HCl Allergy Excitabilit Verified 02/15/21 06:59 [From Benadryl] y hydrocodone Allergy Anaphylactic Verified 02/15/21 06:59 Shock oxycodone Allergy Anaphylactic Verified 02/15/21 06:59 Shock promethazine HCl Allergy Excitabilit Verified 02/15/21 06:59 [From Phenergan] y Sulfa (Sulfonamide Allergy Excitabilit Verified 02/15/21 06:59 Antibiotics) y Home Meds: Home Meds Thyroid,Pork [[place] Thyroid] 90 mg PO DAILY 05/18/14 [History] traMADol [Ultram] 50 mg PO TID PRN 05/18/14 [History] Amoxicillin/Clavulanate K [Augmentin 875-125 MG] 125 - 875 mg PO BID 02/14/21 [History] Aspirin/Acetaminophen/Caffeine [Headache Relief Gelcap] 1 tab PO ASDIRECTED PRN 02/14/21 [History] Brimonidine [Alphagan P 0.1% Ophth Soln] 1 drop EYEBOTH BEDTIME 02/14/21 [History] Famotidine 20 mg PO DAILY 02/14/21 [History] Ibuprofen 200 mg PO ASDIRECTED PRN 02/14/21 [History] Omeprazole Magnesium [Prilosec Otc] 40 mg PO DAILY #30 tablet. 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: Musculoskeletal History: Reports: Arthritis, Back Pain, Chronic, Neck Pain, Chronic Neurological History: Reports: Migraines Endocrine/Metabolic History: Reports: Hypothyroidism Other Endocrine/Metabolic History: thyroid CA Oncologic (Cancer) History: Reports: Thyroid - Past Surgical History GI Surgical History: Reports: Cholecystectomy Female Surgical History: Reports: Endometrial Ablation, Tubal Ligation, Other (See Below) Endocrine Surgical History: Reports: Thyroidectomy Social & Family History - Caffeine Use Caffeine Use: Reports: Soda - Living Situation & Occupation Living situation: Reports: , with Significant Other (Boyfriend) 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 Denies: Fever, Chills HEENT: Reports: No Symptoms Respiratory: Reports: No Symptoms Cardiovascular: Reports: No Symptoms Endocrine: Reports: No Symptoms GI/Abdominal: Reports: Bloody Stool. Denies: Abdominal Pain, Nausea, Vomiting : Reports: No Symptoms ED EXAM, GENERAL - Physical Exam Exam: See Below Exam Limited By: No Limitations General Appearance: Alert, No Apparent Distress Ears: Normal External Exam Nose: Normal Inspection Head: Atraumatic, Normocephalic Neck: Normal Inspection Respiratory/Chest: No Respiratory Distress, Lungs Clear, Normal Breath Sounds Cardiovascular: Regular Rate, Rhythm, No Edema, No Murmur GI/Abdominal: Soft, Non-Tender, No Organomegaly, No Mass Back Exam: Normal Inspection Extremities: Normal Inspection Course - Vital Signs Last Recorded V/S: Last Vital Signs Temp 96.4 F L 02/15/21 06:57 Pulse 109 H 02/15/21 06:57 Resp 20 02/15/21 06:57 BP 97/69 02/15/21 06:57 Pulse Ox 100 02/15/21 06:57 - Orders/Labs/Meds Orders: Active Orders 24 hr Category Date Time Status Patient Status [ADT] Routine ADT 02/15/21 08:32 Ordered Cardiac Monitoring [RC] . DIRECTED Care 02/15/21 07:02 Active Peripheral IV Care [RC] . DIRECTED Care 02/15/21 07:02 Active CORONAVIRUS COVID-19 BROWN [MOLEC] Stat Lab 02/15/21 07:55 Received RED BLOOD CELLS LP [BBK] Stat Lab 02/15/21 07:00 Results TYPE AND SCREEN [BBK] Stat Lab 02/15/21 07:00 Results Sodium Chloride 0.9% [Normal Saline] 1,000 ml Med 02/15/21 07:41 Active IV ONETIME Sodium Chloride 0.9% [Saline Flush] Med 02/15/21 07:02 Active 10 ml FLUSH ASDIRECTED PRN Peripheral IV Insertion Adult [OM.PC] Stat Oth 02/15/21 07:02 Ordered Transfuse PRBC [Transfuse Red Blood Cells] [COMM] Stat Oth 02/15/21 07:03 Ordered Medication Orders Sodium Chloride (Normal Saline) 1,000 mls @ 1,000 mls/hr IV ONETIME ONE Stop: 02/15/21 08:40 Last Admin: 02/15/21 07:44 Dose: 1,000 mls/hr Documented by: SHAKA Sodium Chloride (Sodium Chloride 0.9% 10 Ml Syringe) 10 ml FLUSH ASDIRECTED PRN PRN Reason: Keep Vein Open Last Admin: 02/15/21 07:22 Dose: 10 ml Documented by: SHAKA Labs: Laboratory Tests 02/15/21 02/15/21 02/15/21 Range/Units 07:00 07:00 07:00 WBC 7.31 (3.98-10.04) K/mm3 RBC 1.77 L (3.98-5.22) M/mm3 Hgb 5.5 L* D (11.2-15.7) gm/dl Hct 16.6 L (34.1-44.9) % MCV 93.8 (79.4-94.8) fl MCH 31.1 (25.6-32.2) pg MCHC 33.1 (32.2-35.5) g/dl RDW Std Deviation 42.5 (36.4-46.3) fL Plt Count 244 (182-369) K/mm3 MPV 10.2 (9.4-12.3) fl Neut % (Auto) 55.6 (34.0-71.1) % Lymph % (Auto) 38.0 (19.3-51.7) % [place] % (Auto) 5.2 (4.7-12.5) % Eos % (Auto) 0.7 (0.7-5.8) Baso % (Auto) 0.1 (0.1-1.2) % Neut # (Auto) 4.06 (1.56-6.13) K/mm3 Lymph # (Auto) 2.78 (1.18-3.74) K/mm3 [place] # (Auto) 0.38 H (0.24-0.36) K/mm3 Eos # (Auto) 0.05 (0.04-0.36) K/mm3 Baso # (Auto) 0.01 (0.01-0.08) K/mm3 PT 10.9 (9.7-12.0) SECONDS INR 0.98 APTT < 20.0 L (21.7-31.4) SECONDS Sodium 143 (136-145) mEq/L Potassium 3.5 (3.5-5.1) mEq/L Chloride 110 H (98-107) mEq/L Carbon Dioxide 23 (21-32) mEq/L Anion Gap 13.5 (5-15) BUN 26 H (7-18) mg/dL Creatinine 0.8 (0.55-1.02) mg/dL Est Cr Clr Drug Dosing 64.95 mL/min Estimated GFR (MDRD) > 60 (>60) mL/min BUN/Creatinine Ratio 32.5 H (14-18) Glucose 168 H (70-99) mg/dL Calcium 8.2 L (8.5-10.1) mg/dL Total Bilirubin 0.2 (0.2-1.0) mg/dL AST 11 L (15-37) U/L ALT 14 (14-59) U/L Alkaline Phosphatase 36 L (46-116) U/L Total Protein 4.8 L (6.4-8.2) g/dl Albumin 2.7 L (3.4-5.0) g/dl Globulin 2.1 gm/dL Albumin/Globulin Ratio 1.3 (1-2) Blood Type Gel Antibody Screen Crossmatch 02/15/21 Range/Units 07:00 WBC (3.98-10.04) K/mm3 RBC (3.98-5.22) M/mm3 Hgb (11.2-15.7) gm/dl Hct (34.1-44.9) % MCV (79.4-94.8) fl MCH (25.6-32.2) pg MCHC (32.2-35.5) g/dl RDW Std Deviation (36.4-46.3) fL Plt Count (182-369) K/mm3 MPV (9.4-12.3) fl Neut % (Auto) (34.0-71.1) % Lymph % (Auto) (19.3-51.7) % [place] % (Auto) (4.7-12.5) % Eos % (Auto) (0.7-5.8) Baso % (Auto) (0.1-1.2) % Neut # (Auto) (1.56-6.13) K/mm3 Lymph # (Auto) (1.18-3.74) K/mm3 [place] # (Auto) (0.24-0.36) K/mm3 Eos # (Auto) (0.04-0.36) K/mm3 Baso # (Auto) (0.01-0.08) K/mm3 PT (9.7-12.0) SECONDS INR APTT (21.7-31.4) SECONDS Sodium (136-145) mEq/L Potassium (3.5-5.1) mEq/L Chloride (98-107) mEq/L Carbon Dioxide (21-32) mEq/L Anion Gap (5-15) BUN (7-18) mg/dL Creatinine (0.55-1.02) mg/dL Est Cr Clr Drug Dosing mL/min Estimated GFR (MDRD) (>60) mL/min BUN/Creatinine Ratio (14-18) Glucose (70-99) mg/dL Calcium (8.5-10.1) mg/dL Total Bilirubin (0.2-1.0) mg/dL AST (15-37) U/L ALT (14-59) U/L Alkaline Phosphatase (46-116) U/L Total Protein (6.4-8.2) g/dl Albumin (3.4-5.0) g/dl Globulin gm/dL Albumin/Globulin Ratio (1-2) Blood Type O POSITIVE Gel Antibody Screen Negative Crossmatch See Detail Meds: Medications Generic Name Dose Route Start Last Admin Trade Name Freq PRN Reason Stop Dose Admin Sodium Chloride 1,000 mls @ 1,000 mls/hr 02/15/21 07:41 02/15/21 07:44 Normal Saline IV 02/15/21 08:40 1,000 mls/hr ONETIME ONE Administration Sodium Chloride 10 ml 02/15/21 07:02 02/15/21 07:22 Sodium Chloride 0.9% 10 Ml Syringe FLUSH 10 ml ASDIRECTED PRN Administration Keep Vein Open Discontinued Medications Generic Name Dose Route Start Last Admin Trade Name Freq PRN Reason Stop Dose Admin Metoclopramide HCl 10 mg 02/15/21 08:30 Metoclopramide 10 Mg/2 Ml Sdv IVPUSH 02/15/21 08:31 ONETIME ONE Ondansetron HCl 4 mg 02/15/21 07:16 02/15/21 07:20 Ondansetron 4 Mg/2 Ml Sdv IVPUSH 02/15/21 07:17 4 mg ONETIME ONE Administration Pantoprazole Sodium 80 mg 02/15/21 07:48 02/15/21 08:21 Pantoprazole 40 Mg Vial IVPUSH 02/15/21 07:49 80 mg BOLUS ONE Administration - Re-Assessments/Exams Free Text/Narrative Re-Assessment/Exam: 02/15/21 07:08 I ordered an IV saline lock, 2 units of PRBCs and labs. 02/15/21 08:14 Her HGb went down to 5.5 from 7.8. Her PT and PTT were normal. Her glucose was 168. Her BP did dip down to 79 systolic. I ordered a fluid bolus. She is up to 100/58 now. I talked with Dr Thorne our hospitalist and he wanted me to talk with Dr Onofre our general surgeon operations dispatcher. Dr Onofre said the patient does need a scope but she needs 2 units of PRBCs first. 02/15/21 08:33 Dr Thorne will admit. Departure - Departure Time of Disposition: 08:35 Disposition: Admitted As Inpatient 65 Clinical Impression: GI bleed due to NSAIDs, Pain, dental, Dental abscess Nausea & vomiting Qualifiers: Vomiting type: unspecified Qualified Code(s): R11.2 - Nausea with vomiting, unspecified Anemia Qualifiers: Anemia type: other cause Other causes of anemia: other cause, not classified Qualified Code(s): D64.89 - Other specified anemias Referrals: Denise Dalal PA-C [Primary Care Provider] - Forms: ED Department Discharge Sepsis Event Note (ED) - Focused Exam Vital Signs: Vital Signs Temp Pulse Resp BP Pulse Ox 02/15/21 06:57 96.4 F L 109 H 20 97/69 100 - My Orders Last 24 Hours: My Active Orders 02/15/21 07:00 RED BLOOD CELLS LP [BBK] Stat TYPE AND SCREEN [BBK] Stat 02/15/21 07:02 Cardiac Monitoring [RC] . DIRECTED Peripheral IV Care [RC] . DIRECTED Sodium Chloride 0.9% [Saline Flush] 10 ml FLUSH ASDIRECTED PRN Peripheral IV Insertion Adult [OM.PC] Stat 02/15/21 07:03 Transfuse PRBC [Transfuse Red Blood Cells] [COMM] Stat 02/15/21 07:41 Sodium Chloride 0.9% [Normal Saline] 1,000 ml IV ONETIME 02/15/21 07:55 CORONAVIRUS COVID-19 BROWN [MOLEC] Stat 02/15/21 08:32 Patient Status [ADT] Routine - Assessment/Plan Last 24 Hours: My Active Orders 02/15/21 07:00 RED BLOOD CELLS LP [BBK] Stat TYPE AND SCREEN [BBK] Stat 02/15/21 07:02 Cardiac Monitoring [RC] . DIRECTED Peripheral IV Care [RC] . DIRECTED Sodium Chloride 0.9% [Saline Flush] 10 ml FLUSH ASDIRECTED PRN Peripheral IV Insertion Adult [OM.PC] Stat 02/15/21 07:03 Transfuse PRBC [Transfuse Red Blood Cells] [COMM] Stat 02/15/21 07:41 Sodium Chloride 0.9% [Normal Saline] 1,000 ml IV ONETIME 02/15/21 07:55 CORONAVIRUS COVID-19 BROWN [MOLEC] Stat 02/15/21 08:32 Patient Status [ADT] Routine
[2021-02-15] MEDS ORDERED: Ondansetron 4 MG/2 ML SDV IVPUSH ONE (07:16)
[2021-02-15] MEDS ORDERED: Sodium Chloride 0.9% 1,000 ML IV ONE (07:41)
[2021-02-15] MEDS ORDERED: Pantoprazole 40 MG Vial IVPUSH ONE (07:48)
[2021-02-15] MEDS ORDERED: Metoclopramide 10 MG/2 ML SDV IVPUSH ONE (08:30)
[2021-02-15] MEDS ORDERED: HYDROmorphone 0.5 MG/0.5 ML Syringe IVPUSH ONE ×2 (08:39→14:16)
[2021-02-15] MEDS ORDERED: HYDROmorphone 0.5 MG/0.5 ML Syringe ONE (08:41)
[2021-02-15] MEDS ORDERED: Acetaminophen 325 MG Tab PO PRN (09:08)
--- NOTE | 2021-02-15 09:19 | PCM.HP.2 ---
H&P History of Present Illness - General Date of Service: 02/15/21 Admit Problem/Dx: Admission Diagnosis/Problem Admission Diagnosis/Problem GI bleed not requiring more than 4 units of blood in 24 hours, ICU, or surgery Source of Information: Patient, Family, Provider History Limitations: Reports: No Limitations - History of Present Illness Initial Comments - Free Text/Narative: Is a 55-year-old female with a past medical history as listed below presents to the emergency department for the second day in a row due to concerns of GI bleeding. The patient has been suffering from a toothache for the past better part of a week. She received Augmentin from a colleague to treat empirically for possible dental infection, however due to the pain, she started taking ibuprofen. She endorses a history of 800 mg at least 3 times to 4 times a day for the past better part of a week. She started to notice black and occasional bright red stools starting yesterday. She was seen in the emergency department for this yesterday. Hemoglobin was above transfusion threshold. The patient was initially referred for admission however the patient did not want to be admitted. She continued to produce bloody stools. She vomited this morning which showed signs of hematemesis. She has become more pale than yesterday. She presents with her today for ongoing signs of GI bleeding. She was found to be tachycardic however blood pressure was acceptable. There was hematemesis noted in the emergency department upon intake. Hemoglobin had a notable drop down to 5.5. Patient has been referred to the surgery team as well as the internal medicine team for ongoing comanagement of likely acute upper GI bleeding in the setting of NSAID use. Transfusion has already begun in the emergency department. The surgery team is requested 2 units packed red blood cells before endoscopic evaluation. Patient was loaded with Protonix 80 mg and on my order was started on a Protonix infusion in the emergency department immediately. She has received some narcotics for epigastric discomfort which is apparently been bothering her as well for the past better part of a week. Patient endorses only the history of bleeding and diffuse weakness and pallor. A 14 point review of systems was reviewed entirely and only pertinent for the above information. CODE STATUS: Full code. - Related Data Allergies/Adverse Reactions: Allergies Allergy/AdvReac Type Severity Reaction Status Date / Time codeine Allergy Anaphylactic Verified 02/15/21 06:59 Shock hydrocodone Allergy Anaphylactic Verified 02/15/21 06:59 Shock oxycodone Allergy Anaphylactic Verified 02/15/21 06:59 Shock diphenhydramine HCl AdvReac Excitabilit Verified 02/15/21 09:13 [From Benadryl] y promethazine HCl AdvReac Excitabilit Verified 02/15/21 09:13 [From Phenergan] y Sulfa (Sulfonamide AdvReac Excitabilit Verified 02/15/21 09:13 Antibiotics) y Home Medications: Home Meds Thyroid,Pork [[place] Thyroid] 90 mg PO DAILY 05/18/14 [History] traMADol [Ultram] 50 mg PO TID PRN 05/18/14 [History] Amoxicillin/Clavulanate K [Augmentin 875-125 MG] 125 - 875 mg PO BID 02/14/21 [History] Aspirin/Acetaminophen/Caffeine [Headache Relief Gelcap] 1 tab PO ASDIRECTED PRN 02/14/21 [History] Brimonidine [Alphagan P 0.1% Ophth Soln] 1 drop EYEBOTH BEDTIME 02/14/21 [History] Famotidine 20 mg PO DAILY 02/14/21 [History] Ibuprofen 200 mg PO ASDIRECTED PRN 02/14/21 [History] Omeprazole Magnesium [Prilosec Otc] 40 mg PO DAILY #30 tablet. 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: Musculoskeletal History: Reports: Arthritis, Back Pain, Chronic, Neck Pain, Chronic Neurological History: Reports: Migraines Endocrine/Metabolic History: Reports: Hypothyroidism Other Endocrine/Metabolic History: thyroid CA Oncologic (Cancer) History: Reports: Thyroid - Past Surgical History GI Surgical History: Reports: Cholecystectomy Female Surgical History: Reports: Endometrial Ablation, Tubal Ligation, Other (See Below) Endocrine Surgical History: Reports: Thyroidectomy Social & Family History - Caffeine Use Caffeine Use: Reports: Soda - Living Situation & Occupation Living situation: Reports: , with Significant Other (Boyfriend) 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 Exam - Exam Exam: See Below - Vital Signs Vital Signs: Last Vital Signs Temp 97.1 F 02/15/21 09:00 Pulse 110 H 02/15/21 09:00 Resp 20 02/15/21 09:00 BP 104/60 02/15/21 09:00 Pulse Ox 100 02/15/21 06:57 Weight: 152 lb - Exam Physical Exam Comments:: General: Awake and alert, in no apparent distress. Nontoxic-appearing. Diffusely pale HEENT: Normocephalic, atraumatic. Extra ocular muscles intact. Pupils equal and reactive to light. Nares are patent. Oropharynx clear without erythema or exudate. Tongue is midline. Neck: Supple without lymphadenopathy. No goiter. Trachea midline. Heart: Sinus tachycardia. S1 and S2 heard without murmur or extrasystoles. Lungs: Clear to auscultation bilaterally. No wheezing, rales, rhonchi. Abdomen: Soft, nontender, nondistended. Positive bowel sounds. No CVA tenderne ss. No suprapubic tenderness. Extremities: Warm and perfused. No clubbing, cyanosis, or edema. Integument: No obvious rash or jaundice. No lymphadenopathy. Neurologic: Cranial nerves II through XII grossly intact. No obvious gross motor or sensory deficits. Psychiatric: Normal mood and affect. - Patient Data Lab Results Last 24 hrs: Laboratory Results - last 24 hr 02/15/21 02/15/21 02/15/21 Range/Units 07:00 07:00 07:00 WBC 7.31 (3.98-10.04) K/mm3 RBC 1.77 L (3.98-5.22) M/mm3 Hgb 5.5 L* D (11.2-15.7) gm/dl Hct 16.6 L (34.1-44.9) % MCV 93.8 (79.4-94.8) fl MCH 31.1 (25.6-32.2) pg MCHC 33.1 (32.2-35.5) g/dl RDW Std Deviation 42.5 (36.4-46.3) fL Plt Count 244 (182-369) K/mm3 MPV 10.2 (9.4-12.3) fl Neut % (Auto) 55.6 (34.0-71.1) % Lymph % (Auto) 38.0 (19.3-51.7) % [place] % (Auto) 5.2 (4.7-12.5) % Eos % (Auto) 0.7 (0.7-5.8) Baso % (Auto) 0.1 (0.1-1.2) % Neut # (Auto) 4.06 (1.56-6.13) K/mm3 Lymph # (Auto) 2.78 (1.18-3.74) K/mm3 [place] # (Auto) 0.38 H (0.24-0.36) K/mm3 Eos # (Auto) 0.05 (0.04-0.36) K/mm3 Baso # (Auto) 0.01 (0.01-0.08) K/mm3 PT 10.9 (9.7-12.0) SECONDS INR 0.98 APTT < 20.0 L (21.7-31.4) SECONDS Sodium 143 (136-145) mEq/L Potassium 3.5 (3.5-5.1) mEq/L Chloride 110 H (98-107) mEq/L Carbon Dioxide 23 (21-32) mEq/L Anion Gap 13.5 (5-15) BUN 26 H (7-18) mg/dL Creatinine 0.8 (0.55-1.02) mg/dL Est Cr Clr Drug Dosing 64.95 mL/min Estimated GFR (MDRD) > 60 (>60) mL/min BUN/Creatinine Ratio 32.5 H (14-18) Glucose 168 H (70-99) mg/dL Calcium 8.2 L (8.5-10.1) mg/dL Total Bilirubin 0.2 (0.2-1.0) mg/dL AST 11 L (15-37) U/L ALT 14 (14-59) U/L Alkaline Phosphatase 36 L (46-116) U/L Total Protein 4.8 L (6.4-8.2) g/dl Albumin 2.7 L (3.4-5.0) g/dl Globulin 2.1 gm/dL Albumin/Globulin Ratio 1.3 (1-2) SARS-CoV-2 RNA (BROWN) (NEGATIVE) Blood Type Gel Antibody Screen Crossmatch 02/15/21 02/15/21 Range/Units 07:00 07:55 WBC (3.98-10.04) K/mm3 RBC (3.98-5.22) M/mm3 Hgb (11.2-15.7) gm/dl Hct (34.1-44.9) % MCV (79.4-94.8) fl MCH (25.6-32.2) pg MCHC (32.2-35.5) g/dl RDW Std Deviation (36.4-46.3) fL Plt Count (182-369) K/mm3 MPV (9.4-12.3) fl Neut % (Auto) (34.0-71.1) % Lymph % (Auto) (19.3-51.7) % [place] % (Auto) (4.7-12.5) % Eos % (Auto) (0.7-5.8) Baso % (Auto) (0.1-1.2) % Neut # (Auto) (1.56-6.13) K/mm3 Lymph # (Auto) (1.18-3.74) K/mm3 [place] # (Auto) (0.24-0.36) K/mm3 Eos # (Auto) (0.04-0.36) K/mm3 Baso # (Auto) (0.01-0.08) K/mm3 PT (9.7-12.0) SECONDS INR APTT (21.7-31.4) SECONDS Sodium (136-145) mEq/L Potassium (3.5-5.1) mEq/L Chloride (98-107) mEq/L Carbon Dioxide (21-32) mEq/L Anion Gap (5-15) BUN (7-18) mg/dL Creatinine (0.55-1.02) mg/dL Est Cr Clr Drug Dosing mL/min Estimated GFR (MDRD) (>60) mL/min BUN/Creatinine Ratio (14-18) Glucose (70-99) mg/dL Calcium (8.5-10.1) mg/dL Total Bilirubin (0.2-1.0) mg/dL AST (15-37) U/L ALT (14-59) U/L Alkaline Phosphatase (46-116) U/L Total Protein (6.4-8.2) g/dl Albumin (3.4-5.0) g/dl Globulin gm/dL Albumin/Globulin Ratio (1-2) SARS-CoV-2 RNA (BROWN) Negative (NEGATIVE) Blood Type O POSITIVE Gel Antibody Screen Negative Crossmatch See Detail Result Diagrams: 02/15/21 07:00 02/15/21 07:00 Sepsis Event Note - Focused Exam Vital Signs: Vital Signs Temp Temp Pulse Resp BP Pulse Ox 02/15/21 09:00 97.1 F 110 H 20 104/60 02/15/21 08:45 97.3 F 112 H 18 99/48 L 02/15/21 06:57 96.4 F L 109 H 20 97/69 100 *Q Meaningful Use (ADM) - VTE *Q VTE Anticoagulation Contraindications: Medical/Procedure Contrai Problem List Initiated/Reviewed/Updated: Yes Orders Last 24hrs: Active Orders 24 hr Category Date Time Status Patient Status [ADT] Routine ADT 02/15/21 08:32 Active Antiembolic Devices [RC] PER UNIT ROUTINE Care 02/15/21 09:10 Ordered Cardiac Monitoring [RC] . DIRECTED Care 02/15/21 07:02 Active Cardiac Monitoring [RC] CONTINUOUS Care 02/15/21 09:08 Ordered Intake and Output [RC] QSHIFT Care 02/15/21 09:09 Ordered Oxygen Therapy [RC] PRN Care 02/15/21 09:08 Ordered Peripheral IV Care [RC] . DIRECTED Care 02/15/21 07:02 Active Pulse Oximetry [RC] PRN Care 02/15/21 09:09 Ordered Up to Chair [RC] ASDIRECTED Care 02/15/21 09:08 Ordered VTE/DVT Education [RC] PER UNIT ROUTINE Care 02/15/21 09:08 Ordered Vital Signs [RC] Q4H Care 02/15/21 09:08 Ordered Nothing per Oral Now Diet [DIET] Diet 02/15/21 Lunch Ordered BASIC METABOLIC PANEL,BMP [CHEM] DAILY Lab 02/16/21 06:00 Ordered BASIC METABOLIC PANEL,BMP [CHEM] DAILY Lab 02/17/21 06:00 Ordered BASIC METABOLIC PANEL,BMP [CHEM] DAILY Lab 02/18/21 06:00 Ordered CBC WITH AUTO DIFF [HEME] DAILY Lab 02/16/21 06:00 Ordered CBC WITH AUTO DIFF [HEME] DAILY Lab 02/17/21 06:00 Ordered CBC WITH AUTO DIFF [HEME] DAILY Lab 02/18/21 06:00 Ordered RED BLOOD CELLS LP [BBK] Stat Lab 02/15/21 07:00 Results TYPE AND SCREEN [BBK] Stat Lab 02/15/21 07:00 Results Acetaminophen [TylenoL] Med 02/15/21 09:08 Ordered 650 mg PO Q4H PRN Lactated Ringers @ 125 MLS/HR(1000ml) Med 02/15/21 09:15 Ordered Lactated Ringers [Ringers, Lactated] 1,000 ml IV ASDIRECTED Pantoprazole [ProTONIX IV] 80 mg Med 02/15/21 09:15 Active Sodium Chloride 0.9% [Normal Saline] 100 ml IV Q10H Sodium Chloride 0.9% [Saline Flush] Med 02/15/21 07:02 Active 10 ml FLUSH ASDIRECTED PRN Sodium Chloride 0.9% [Saline Flush] Med 02/15/21 09:10 Ordered 10 ml FLUSH ASDIRECTED PRN Thyroid,Pork [[place] Thyroid] Med 02/16/21 09:00 Ordered 90 mg PO DAILY Anticoagulation Contraindications VTE [AST] Per Unit Oth 02/15/21 09:08 Ordered Routine Peripheral IV Insertion Adult [OM.PC] Stat Oth 02/15/21 07:02 Ordered Saline Lock Insert [OM.PC] Routine Oth 02/15/21 09:08 Ordered Sequential Compression Device [OM.PC] Per Unit Routine Oth 02/15/21 09:10 Ordered Transfuse PRBC [Transfuse Red Blood Cells] [COMM] Stat Oth 02/15/21 07:03 Ordered Resuscitation Status Routine Resus Stat 02/15/21 09:08 Ordered Medication Orders Acetaminophen (Acetaminophen 325 Mg Tab) 650 mg PO Q4H PRN PRN Reason: Pain (Mild 1-3)/fever Pantoprazole Sodium 80 mg/ (Sodium Chloride) 100 mls @ 10 mls/hr IV Q10H MEENA Lactated Ringer's (Ringers, Lactated) 1,000 mls @ 125 mls/hr IV ASDIRECTED MEENA Non-Formulary Medication (Thyroid,Pork [[place] Thyroid]) 90 mg PO DAILY MEENA Sodium Chloride (Sodium Chloride 0.9% 10 Ml Syringe) 10 ml FLUSH ASDIRECTED PRN PRN Reason: Keep Vein Open Last Admin: 02/15/21 07:22 Dose: 10 ml Documented by: SHAKA Sodium Chloride (Sodium Chloride 0.9% 10 Ml Syringe) 10 ml FLUSH ASDIRECTED PRN PRN Reason: Keep Vein Open Assessment/Plan Comment:: 55-year-old female with a past medical history as mentioned above who presents to the emergency department with likely upper GI bleeding in the setting of excessive NSAID use. 1. Acute blood loss anemia. Secondary to GI bleed. Suspect upper source. Admit to the hospital service with GI consult for comanagement. Plan for packed red blood cell transfusion. Goal is 7 g/dL of hemoglobin. Plan for upper endoscopic evaluation later today. If no findings would likely expect colonoscopy to be performed in the near future as well. Continue with Protonix infusion. Will consider Carafate. Dual IV access. Continue crystalloid. Monitor CBCs and further transfusions as necessary. 2. GI bleeding. Likely secondary to NSAID use. Suspect upper source. Plan as above. 3. Hypothyroidism. Continue [place] Thyroid at home dose. All other medical comorbidities are stable and nonactive conditions. Will hold unnecessary medications at current time and will reinstate when patient is taking p.o. and more safe to do so. CODE STATUS: Full code. DVT prophylaxis mechanically in the setting of bleeding. - Mortality Measure Prognosis:: Good
[2021-02-15] MEDS: Pantoprazole 80 MG in Sodium Chloride 0.9% 100 ML IV SCH ×3 (09:35→20:19)
[2021-02-15] MEDS: Lactated Ringers 1,000 ML IV SCH ×2 (12:51→20:55)
--- NOTE | 2021-02-15 13:02 | PCM.CONS ---
H&P History of Present Illness - General Date of Service: 02/15/21 Admit Problem/Dx: Admission Diagnosis/Problem Admission Diagnosis/Problem GI bleed not requiring more than 4 units of blood in 24 hours, ICU, or surgery Source of Information: Patient, Provider History Limitations: Reports: No Limitations - History of Present Illness Initial Comments - Free Text/Narative: The patient is a 55 y/o lady who presents with melena and hematemesis. She reports having a large amount of ibuprofen (800mg every 6 hours) for 2-3 days. This was in the last week. She started having hematochezia and melena about 4 days ago and she stopped the ibuprofen. She was having epigastric pain that is now resolve. She did have a small amount of nausea. She states her last bowel movement was the day before yesterday in the evening. She had a small about of coffee-ground emesis this am in the ED. She presented to the ED 1 day ago and was found to be anemic. She was given PPI treatment with fluid resuscitation. She presented today after noting a SBP 70's per her home BP monitor. In the ED her repeat labs today showed Hg 5.5. She was admitted for blood and fluid resuscitation. She has been maintaining BP 90's to 100's. Headache Pain Score (Numeric/FACES): 2 - Related Data Allergies/Adverse Reactions: Allergies Allergy/AdvReac Type Severity Reaction Status Date / Time codeine Allergy Anaphylactic Verified 02/15/21 06:59 Shock hydrocodone Allergy Anaphylactic Verified 02/15/21 06:59 Shock oxycodone Allergy Anaphylactic Verified 02/15/21 06:59 Shock diphenhydramine HCl AdvReac Excitabilit Verified 02/15/21 09:13 [From Benadryl] y promethazine HCl AdvReac Excitabilit Verified 02/15/21 09:13 [From Phenergan] y Sulfa (Sulfonamide AdvReac Excitabilit Verified 02/15/21 09:13 Antibiotics) y Home Medications: Home Meds Thyroid,Pork [[place] Thyroid] 90 mg PO DAILY 05/18/14 [History] traMADol [Ultram] 50 mg PO TID PRN 05/18/14 [History] Amoxicillin/Clavulanate K [Augmentin 875-125 MG] 125 - 875 mg PO BID 02/14/21 [History] Aspirin/Acetaminophen/Caffeine [Headache Relief Gelcap] 1 tab PO ASDIRECTED PRN 02/14/21 [History] Brimonidine [Alphagan P 0.1% Ophth Soln] 1 drop EYEBOTH BEDTIME 02/14/21 [History] Famotidine 20 mg PO DAILY 02/14/21 [History] Ibuprofen 200 mg PO ASDIRECTED PRN 02/14/21 [History] Omeprazole Magnesium [Prilosec Otc] 40 mg PO DAILY #30 tablet. 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: Musculoskeletal History: Reports: Arthritis, Back Pain, Chronic, Neck Pain, Chronic Neurological History: Reports: Migraines Endocrine/Metabolic History: Reports: Hypothyroidism Other Endocrine/Metabolic History: thyroid CA Oncologic (Cancer) History: Reports: Thyroid - Past Surgical History GI Surgical History: Reports: Cholecystectomy Female Surgical History: Reports: Endometrial Ablation, Tubal Ligation, Other (See Below) Endocrine Surgical History: Reports: Thyroidectomy Social & Family History - Family History Cardiac: Reports: Hypertension Oncologic: Denies: Colon - Tobacco Use Tobacco Use Status *Q: Never Tobacco User Second Hand Smoke Exposure: No - Caffeine Use Caffeine Use: Reports: Soda - Recreational Drug Use Recreational Drug Use: No - Living Situation & Occupation Living situation: Reports: , with Significant Other (Boyfriend) 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 Review of Systems - Review of Systems: Review Of Systems: See Below General: Reports: Weakness HEENT: Reports: No Symptoms Pulmonary: Reports: Shortness of Breath (improved with PRBC transfusion) Cardiovascular: Reports: No Symptoms Gastrointestinal: Reports: Abdominal Pain, Bloody Stool, Hematemesis, Melena Genitourinary: Reports: No Symptoms Musculoskeletal: Reports: No Symptoms Skin: Reports: No Symptoms Neurological: Reports: Tingling (with recent low BP) Hematologic/Lymphatic: Reports: No Symptoms Exam - Exam Exam: See Below - Vital Signs Vital Signs: Last Vital Signs Temp 36.8 C 02/15/21 10:42 Pulse 96 02/15/21 10:42 Resp 20 02/15/21 10:42 BP 104/73 02/15/21 10:42 Pulse Ox 100 02/15/21 10:20 Weight: 71.849 kg - Exam Quality Assessment: No: Supplemental Oxygen General: Alert, Oriented HEENT: Conjunctiva Clear, EOMI Neck: Supple Lungs: Clear to Auscultation, Normal Respiratory Effort Cardiovascular: Regular Rate, Regular Rhythm GI/Abdominal Exam: Soft, Non-Tender, No Distention Extremities: Normal Inspection, No Pedal Edema Peripheral Pulses: 1+: Dorsalis Pedis (L), Dorsalis Pedis (R) Skin: Warm, Dry, Intact Neurological: Cranial Nerves Intact Neuro Extensive - Mental Status: Normal Mood/Affect - Patient Data Lab Results Last 24 hrs: Laboratory Results - last 24 hr 02/15/21 02/15/21 02/15/21 Range/Units 07:00 07:00 07:00 WBC 7.31 (3.98-10.04) K/mm3 RBC 1.77 L (3.98-5.22) M/mm3 Hgb 5.5 L* D (11.2-15.7) gm/dl Hct 16.6 L (34.1-44.9) % MCV 93.8 (79.4-94.8) fl MCH 31.1 (25.6-32.2) pg MCHC 33.1 (32.2-35.5) g/dl RDW Std Deviation 42.5 (36.4-46.3) fL Plt Count 244 (182-369) K/mm3 MPV 10.2 (9.4-12.3) fl Neut % (Auto) 55.6 (34.0-71.1) % Lymph % (Auto) 38.0 (19.3-51.7) % [place] % (Auto) 5.2 (4.7-12.5) % Eos % (Auto) 0.7 (0.7-5.8) Baso % (Auto) 0.1 (0.1-1.2) % Neut # (Auto) 4.06 (1.56-6.13) K/mm3 Lymph # (Auto) 2.78 (1.18-3.74) K/mm3 [place] # (Auto) 0.38 H (0.24-0.36) K/mm3 Eos # (Auto) 0.05 (0.04-0.36) K/mm3 Baso # (Auto) 0.01 (0.01-0.08) K/mm3 PT 10.9 (9.7-12.0) SECONDS INR 0.98 APTT < 20.0 L (21.7-31.4) SECONDS Sodium 143 (136-145) mEq/L Potassium 3.5 (3.5-5.1) mEq/L Chloride 110 H (98-107) mEq/L Carbon Dioxide 23 (21-32) mEq/L Anion Gap 13.5 (5-15) BUN 26 H (7-18) mg/dL Creatinine 0.8 (0.55-1.02) mg/dL Est Cr Clr Drug Dosing 64.95 mL/min Estimated GFR (MDRD) > 60 (>60) mL/min BUN/Creatinine Ratio 32.5 H (14-18) Glucose 168 H (70-99) mg/dL Calcium 8.2 L (8.5-10.1) mg/dL Total Bilirubin 0.2 (0.2-1.0) mg/dL AST 11 L (15-37) U/L ALT 14 (14-59) U/L Alkaline Phosphatase 36 L (46-116) U/L Total Protein 4.8 L (6.4-8.2) g/dl Albumin 2.7 L (3.4-5.0) g/dl Globulin 2.1 gm/dL Albumin/Globulin Ratio 1.3 (1-2) SARS-CoV-2 RNA (BROWN) (NEGATIVE) Blood Type Gel Antibody Screen Crossmatch 02/15/21 02/15/21 Range/Units 07:00 07:55 WBC (3.98-10.04) K/mm3 RBC (3.98-5.22) M/mm3 Hgb (11.2-15.7) gm/dl Hct (34.1-44.9) % MCV (79.4-94.8) fl MCH (25.6-32.2) pg MCHC (32.2-35.5) g/dl RDW Std Deviation (36.4-46.3) fL Plt Count (182-369) K/mm3 MPV (9.4-12.3) fl Neut % (Auto) (34.0-71.1) % Lymph % (Auto) (19.3-51.7) % [place] % (Auto) (4.7-12.5) % Eos % (Auto) (0.7-5.8) Baso % (Auto) (0.1-1.2) % Neut # (Auto) (1.56-6.13) K/mm3 Lymph # (Auto) (1.18-3.74) K/mm3 [place] # (Auto) (0.24-0.36) K/mm3 Eos # (Auto) (0.04-0.36) K/mm3 Baso # (Auto) (0.01-0.08) K/mm3 PT (9.7-12.0) SECONDS INR APTT (21.7-31.4) SECONDS Sodium (136-145) mEq/L Potassium (3.5-5.1) mEq/L Chloride (98-107) mEq/L Carbon Dioxide (21-32) mEq/L Anion Gap (5-15) BUN (7-18) mg/dL Creatinine (0.55-1.02) mg/dL Est Cr Clr Drug Dosing mL/min Estimated GFR (MDRD) (>60) mL/min BUN/Creatinine Ratio (14-18) Glucose (70-99) mg/dL Calcium (8.5-10.1) mg/dL Total Bilirubin (0.2-1.0) mg/dL AST (15-37) U/L ALT (14-59) U/L Alkaline Phosphatase (46-116) U/L Total Protein (6.4-8.2) g/dl Albumin (3.4-5.0) g/dl Globulin gm/dL Albumin/Globulin Ratio (1-2) SARS-CoV-2 RNA (BROWN) Negative (NEGATIVE) Blood Type O POSITIVE Gel Antibody Screen Negative Crossmatch See Detail Result Diagrams: 02/15/21 07:00 02/15/21 07:00 Sepsis Event Note - Evaluation Sepsis Screening Result: No Definite Risk - Focused Exam Vital Signs: Vital Signs Temp Temp Pulse Resp BP Pulse Ox 02/15/21 10:42 36.8 C 96 20 104/73 02/15/21 10:38 36.3 C 101 H 18 98/68 02/15/21 10:37 36.4 C 96 19 102/71 02/15/21 10:20 36.3 C 108 H 18 98/55 L 100 02/15/21 10:00 36.3 C 96 19 96/68 100 02/15/21 09:45 36.2 C 108 H 18 86/48 L 02/15/21 09:14 35.8 C L 102 H 18 96/57 L 02/15/21 09:09 100 02/15/21 09:00 36.2 C 110 H 20 104/60 02/15/21 08:45 36.3 C 112 H 18 99/48 L 02/15/21 06:57 35.8 C L 109 H 20 97/69 100 *Q Meaningful Use (ADM) - VTE *Q VTE Pharmacological Contraindications *Q: Active Hemorrhage VTE Anticoagulation Contraindications: Medical/Procedure Contrai Consult PN Assessment/Plan Procedures: Procedures ASSAY OF FREE THYROXINE (05/27/20) ASSAY OF LIPASE (11/04/17) ASSAY THYROID STIM HORMONE (09/11/20) BL SMEAR W/DIFF WBC COUNT (11/04/17) C-REACTIVE PROTEIN (11/04/17) CHYLMD TRACH DNA AMP PROBE (09/22/17) COMPLETE CBC AUTOMATED (01/01/19) COMPLETE CBC W/AUTO DIFF WBC (09/11/20) COMPREHEN METABOLIC PANEL (09/11/20) CT ABD & PELV W/CONTRAST (11/04/17) EMERGENCY DEPT VISIT (05/11/19) EMERGENCY DEPT VISIT (11/04/17) EMERGENCY DEPT VISIT (08/10/17) EMERGENCY DEPT VISIT (05/18/14) FREE ASSAY (FT-3) (01/01/19) GLYCOSYLATED HEMOGLOBIN TEST (09/11/20) HEP B SURFACE ANTIBODY (04/25/14) HEPATITIS C AB TEST (04/25/14) HYDRATE IV INFUSION ADD-ON (11/04/17) LIPID PANEL (02/18/17) MANUAL THERAPY 1/> REGIONS (09/03/16) MRI CHEST SPINE W/O DYE (07/20/19) MRI JNT OF LWR EXTRE W/O DYE (09/06/13) MRI LUMBAR SPINE W/O DYE (07/20/19) MRI NECK SPINE W/O DYE (12/06/16) N.GONORRHOEAE DNA AMP PROB (09/22/17) NOS EACH ORGANISM AG IA (04/25/14) PT EVAL MOD COMPLEX 30 MIN (08/03/16) ROUTINE VENIPUNCTURE (09/11/20) SMEAR WET M[place] SALINE/INK (09/22/17) THER/PROPH/DIAG INJ IV PUSH (11/04/17) THERAPEUTIC EXERCISES (09/03/16) TRICHOMONAS ASSAY W/OPTIC (09/22/17) TX/PRO/DX INJ NEW DRUG ADDON (11/04/17) TX/PRO/DX INJ SAME DRUG 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 (05/18/14) URINALYSIS AUTO W/O SCOPE (11/21/19) URINALYSIS AUTO W/SCOPE (10/13/20) URINE BACTERIA CULTURE (05/18/14) URINE CULTURE/COLONY COUNT (10/13/20) X-RAY EXAM ABDOMEN 2 VIEWS (11/04/17) X-RAY EXAM L-S SPINE 2/3 VWS (05/11/19) X-RAY EXAM NECK SPINE 2-3 VW (07/21/16) X-RAY EXAM THORAC SPINE 2VWS (07/27/16) (1) Anemia SNOMED Code(s): 973855734 Code(s): D64.9 - ANEMIA, UNSPECIFIED Current Visit: Yes Qualifiers: Anemia type: other cause Other causes of anemia: other cause, not classified Qualified Code(s): D64.89 - Other specified anemias (2) GI bleed due to NSAIDs SNOMED Code(s): 67195126 Code(s): K92.2 - GASTROINTESTINAL HEMORRHAGE, UNSPECIFIED; T39.395A - ADVERSE EFFECT OF NONSTEROIDAL ANTI-INFLAMMATORY DRUGS, INIT Current Visit: Yes Problem List Initiated/Reviewed/Updated: Yes Plan: 55 y/o lady with GI bleed due to improper NSAID use - she has not had a BM for over 24 hours, which indicates she is not actively bleeding. She does not wish to have an EGD if not necessary. We discussed that it would likely not shorten her hospital stay, but an EGD and colonoscopy would be recommended in the outpatient setting. The patient was agreeable. - complete PRBC transfusion with f/u Hg monitoring per primary. - continue IV protonix, transition to daily 40mg PO when discharged - pt advised to avoid all NSAIDs upon discharge - may trial clears if pt responds appropriately to blood transfusion Follow up in 2 weeks in clinic Dahiana Lovett MD General surgery
[2021-02-15] MEDS ORDERED: Sodium Chloride 0.9% 500 ML IV STA (19:19)
[2021-02-16] MEDS ORDERED: HYDROmorphone 1 MG/ML Syringe IVPUSH ONE (03:28)
[2021-02-16] MEDS: Pantoprazole 80 MG in Sodium Chloride 0.9% 100 ML IV SCH ×4 (03:53→16:14)
[2021-02-16] MEDS: Lactated Ringers 1,000 ML IV SCH (04:55)
--- NOTE | 2021-02-16 07:10 | PCM.PN ---
<Pablito Diaz - Last Filed: 02/16/21 09:29> - General Info Date of Service: 02/16/21 Admission Dx/Problem (Free Text): Admission Diagnosis/Problem Admission Diagnosis/Problem GI bleed not requiring more than 4 units of blood in 24 hours, ICU, or surgery Functional Status: Reports: Pain Controlled (reports some back pain ), Tolerating Diet (clear liquids ), Ambulating, Urinating. Denies: New Symptoms - Review of Systems General: Reports: Weakness (improving ). Denies: Fever, Fatigue, Malaise, Chills HEENT: Reports: No Symptoms. Denies: Headaches, Sore Throat Pulmonary: Reports: No Symptoms. Denies: Shortness of Breath, Cough, Sputum, Wheezing Cardiovascular: Reports: Edema (hands ). Denies: Chest Pain, Palpitations, Dyspnea on Exertion Gastrointestinal: Reports: Melena. Denies: Abdominal Pain, Constipation, Diarrhea, Nausea, Vomiting Genitourinary: Reports: No Symptoms. Denies: Pain Musculoskeletal: Reports: Back Pain (chronic ) Skin: Reports: No Symptoms. Denies: Cyanosis Neurological: Reports: No Symptoms. Denies: Confusion, Dizziness, Headache, N umbness, Pre-Existing Deficit, Seizure, Syncope, Tingling, Difficulty Walking, Gait Disturbance Psychiatric: Reports: No Symptoms - Patient Data Vitals - Most Recent: Last Vital Signs Temp 97.4 F 02/16/21 03:56 Pulse 78 02/16/21 03:56 Resp 16 02/16/21 03:56 BP 121/77 02/16/21 03:56 Pulse Ox 96 02/16/21 03:56 Weight - Most Recent: 158 lb 4.8 oz I&O - Last 24 Hours: Intake & Output 02/15/21 02/16/21 02/16/21 22:59 06:59 14:59 Intake Total 1428 1812 Output Total 850 550 Balance 578 1262 Lab Results Last 24 Hours: Laboratory Results - last 24 hr 02/15/21 02/15/21 02/15/21 Range/Units 07:00 07:00 07:00 WBC 7.31 (3.98-10.04) K/mm3 RBC 1.77 L (3.98-5.22) M/mm3 Hgb 5.5 L* D (11.2-15.7) gm/dl Hct 16.6 L (34.1-44.9) % MCV 93.8 (79.4-94.8) fl MCH 31.1 (25.6-32.2) pg MCHC 33.1 (32.2-35.5) g/dl RDW Std Deviation 42.5 (36.4-46.3) fL Plt Count 244 (182-369) K/mm3 MPV 10.2 (9.4-12.3) fl Neut % (Auto) 55.6 (34.0-71.1) % Lymph % (Auto) 38.0 (19.3-51.7) % [place] % (Auto) 5.2 (4.7-12.5) % Eos % (Auto) 0.7 (0.7-5.8) Baso % (Auto) 0.1 (0.1-1.2) % Neut # (Auto) 4.06 (1.56-6.13) K/mm3 Lymph # (Auto) 2.78 (1.18-3.74) K/mm3 [place] # (Auto) 0.38 H (0.24-0.36) K/mm3 Eos # (Auto) 0.05 (0.04-0.36) K/mm3 Baso # (Auto) 0.01 (0.01-0.08) K/mm3 PT 10.9 (9.7-12.0) SECONDS INR 0.98 APTT < 20.0 L (21.7-31.4) SECONDS Sodium 143 (136-145) mEq/L Potassium 3.5 (3.5-5.1) mEq/L Chloride 110 H (98-107) mEq/L Carbon Dioxide 23 (21-32) mEq/L Anion Gap 13.5 (5-15) BUN 26 H (7-18) mg/dL Creatinine 0.8 (0.55-1.02) mg/dL Est Cr Clr Drug Dosing 64.95 mL/min Estimated GFR (MDRD) > 60 (>60) mL/min BUN/Creatinine Ratio 32.5 H (14-18) Glucose 168 H (70-99) mg/dL Calcium 8.2 L (8.5-10.1) mg/dL Total Bilirubin 0.2 (0.2-1.0) mg/dL AST 11 L (15-37) U/L ALT 14 (14-59) U/L Alkaline Phosphatase 36 L (46-116) U/L Total Protein 4.8 L (6.4-8.2) g/dl Albumin 2.7 L (3.4-5.0) g/dl Globulin 2.1 gm/dL Albumin/Globulin Ratio 1.3 (1-2) SARS-CoV-2 RNA (BROWN) (NEGATIVE) Blood Type Gel Antibody Screen Crossmatch 02/15/21 02/15/21 02/15/21 Range/Units 07:00 07:55 17:20 WBC 6.12 (3.98-10.04) K/mm3 RBC 2.30 L (3.98-5.22) M/mm3 Hgb 6.9 L* (11.2-15.7) gm/dl Hct 20.7 L (34.1-44.9) % MCV 90.0 D (79.4-94.8) fl MCH 30.0 (25.6-32.2) pg MCHC 33.3 (32.2-35.5) g/dl RDW Std Deviation 43.3 (36.4-46.3) fL Plt Count 150 L D (182-369) K/mm3 MPV 9.9 (9.4-12.3) fl Neut % (Auto) 50.8 (34.0-71.1) % Lymph % (Auto) 43.0 (19.3-51.7) % [place] % (Auto) 5.6 (4.7-12.5) % Eos % (Auto) 0.2 L (0.7-5.8) Baso % (Auto) 0.2 (0.1-1.2) % Neut # (Auto) 3.12 (1.56-6.13) K/mm3 Lymph # (Auto) 2.63 (1.18-3.74) K/mm3 [place] # (Auto) 0.34 (0.24-0.36) K/mm3 Eos # (Auto) 0.01 L (0.04-0.36) K/mm3 Baso # (Auto) 0.01 (0.01-0.08) K/mm3 PT (9.7-12.0) SECONDS INR APTT (21.7-31.4) SECONDS Sodium (136-145) mEq/L Potassium (3.5-5.1) mEq/L Chloride (98-107) mEq/L Carbon Dioxide (21-32) mEq/L Anion Gap (5-15) BUN (7-18) mg/dL Creatinine (0.55-1.02) mg/dL Est Cr Clr Drug Dosing mL/min Estimated GFR (MDRD) (>60) mL/min BUN/Creatinine Ratio (14-18) Glucose (70-99) mg/dL Calcium (8.5-10.1) mg/dL Total Bilirubin (0.2-1.0) mg/dL AST (15-37) U/L ALT (14-59) U/L Alkaline Phosphatase (46-116) U/L Total Protein (6.4-8.2) g/dl Albumin (3.4-5.0) g/dl Globulin gm/dL Albumin/Globulin Ratio (1-2) SARS-CoV-2 RNA (BROWN) Negative (NEGATIVE) Blood Type O POSITIVE Gel Antibody Screen Negative Crossmatch See Detail 02/16/21 Range/Units 05:20 WBC 4.81 (3.98-10.04) K/mm3 RBC 2.99 L (3.98-5.22) M/mm3 Hgb 8.9 L D (11.2-15.7) gm/dl Hct 26.3 L (34.1-44.9) % MCV 88.0 (79.4-94.8) fl MCH 29.8 (25.6-32.2) pg MCHC 33.8 (32.2-35.5) g/dl RDW Std Deviation 43.7 (36.4-46.3) fL Plt Count 155 L (182-369) K/mm3 MPV 10.3 (9.4-12.3) fl Neut % (Auto) 52.7 (34.0-71.1) % Lymph % (Auto) 39.7 (19.3-51.7) % [place] % (Auto) 6.4 (4.7-12.5) % Eos % (Auto) 0.6 L (0.7-5.8) Baso % (Auto) 0.2 (0.1-1.2) % Neut # (Auto) 2.53 (1.56-6.13) K/mm3 Lymph # (Auto) 1.91 (1.18-3.74) K/mm3 [place] # (Auto) 0.31 (0.24-0.36) K/mm3 Eos # (Auto) 0.03 L (0.04-0.36) K/mm3 Baso # (Auto) 0.01 (0.01-0.08) K/mm3 PT (9.7-12.0) SECONDS INR APTT (21.7-31.4) SECONDS Sodium (136-145) mEq/L Potassium (3.5-5.1) mEq/L Chloride (98-107) mEq/L Carbon Dioxide (21-32) mEq/L Anion Gap (5-15) BUN (7-18) mg/dL Creatinine (0.55-1.02) mg/dL Est Cr Clr Drug Dosing mL/min Estimated GFR (MDRD) (>60) mL/min BUN/Creatinine Ratio (14-18) Glucose (70-99) mg/dL Calcium (8.5-10.1) mg/dL Total Bilirubin (0.2-1.0) mg/dL AST (15-37) U/L ALT (14-59) U/L Alkaline Phosphatase (46-116) U/L Total Protein (6.4-8.2) g/dl Albumin (3.4-5.0) g/dl Globulin gm/dL Albumin/Globulin Ratio (1-2) SARS-CoV-2 RNA (BROWN) (NEGATIVE) Blood Type Gel Antibody Screen Crossmatch Med Orders - Current: Current Medications Acetaminophen (Acetaminophen 325 Mg Tab) 650 mg PO Q4H PRN PRN Reason: Pain (Mild 1-3)/fever Last Admin: 02/16/21 00:24 Dose: 650 mg Documented by: Pantoprazole Sodium 80 mg/ (Sodium Chloride) 100 mls @ 10 mls/hr IV Q10H [facility] Last Admin: 02/16/21 05:43 Dose: Not Given Documented by: Lactated Ringer's (Ringers, Lactated) 1,000 mls @ 125 mls/hr IV ASDIRECTED [facility] Last Admin: 02/16/21 04:55 Dose: 125 mls/hr Documented by: Sodium Chloride (Normal Saline) 500 mls @ 25 mls/hr IV STAT STA Stop: 02/16/21 15:18 Last Admin: 02/15/21 19:45 Dose: 25 mls/hr Documented by: Non-Formulary Medication (Thyroid,Pork [[place] Thyroid]) 90 mg PO DAILY MEENA Sodium Chloride (Sodium Chloride 0.9% 10 Ml Syringe) 10 ml FLUSH ASDIRECTED PRN PRN Reason: Keep Vein Open Last Admin: 02/15/21 07:22 Dose: 10 ml Documented by: Sodium Chloride (Sodium Chloride 0.9% 10 Ml Syringe) 10 ml FLUSH ASDIRECTED PRN PRN Reason: Keep Vein Open Discontinued Medications Hydromorphone HCl (Hydromorphone 0.5 Mg/0.5 Ml Syringe) 0.5 mg IVPUSH ONETIME ONE Stop: 02/15/21 08:40 Last Admin: 02/15/21 08:40 Dose: 0.5 mg Documented by: Hydromorphone HCl (Hydromorphone 0.5 Mg/0.5 Ml Syringe) Confirm Administered Dose 0.5 mg .ROUTE .STK-MED ONE Stop: 02/15/21 08:42 Last Admin: 02/15/21 08:46 Dose: Not Given Documented by: Hydromorphone HCl (Hydromorphone 0.5 Mg/0.5 Ml Syringe) 0.5 mg IVPUSH ONETIME ONE Stop: 02/15/21 14:17 Last Admin: 02/15/21 14:23 Dose: 0.5 mg Documented by: Hydromorphone HCl (Hydromorphone 1 Mg/Ml Syringe) 1 mg IVPUSH ONETIME ONE Stop: 02/16/21 03:29 Last Admin: 02/16/21 03:47 Dose: 1 mg Documented by: Sodium Chloride (Normal Saline) 1,000 mls @ 1,000 mls/hr IV ONETIME ONE Stop: 02/15/21 08:40 Last Admin: 02/15/21 07:44 Dose: 1,000 mls/hr Documented by: Metoclopramide HCl (Metoclopramide 10 Mg/2 Ml Sdv) 10 mg IVPUSH ONETIME ONE Stop: 02/15/21 08:31 Last Admin: 02/15/21 08:32 Dose: 10 mg Documented by: Ondansetron HCl (Ondansetron 4 Mg/2 Ml Sdv) 4 mg IVPUSH ONETIME ONE Stop: 02/15/21 07:17 Last Admin: 02/15/21 07:20 Dose: 4 mg Documented by: Pantoprazole Sodium (Pantoprazole 40 Mg Vial) 80 mg IVPUSH BOLUS ONE Stop: 02/15/21 07:49 Last Admin: 02/15/21 08:21 Dose: 80 mg Documented by: - Exam Quality Assessment: DVT Prophylaxis. No: Supplemental Oxygen, Urine Catheter General: Alert, Oriented, Cooperative, No Acute Distress HEENT: Pupils Equal, Pupils Reactive, Mucous Membr. Moist/[place] Neck: Supple, Trachea Midline Lungs: Clear to Auscultation, Normal Respiratory Effort Cardiovascular: Regular Rate, Regular Rhythm GI/Abdominal Exam: Normal Bowel Sounds, Soft, Non-Tender, No Distention (Female) Exam: Deferred Back Exam: Normal Inspection, Full Range of Motion Extremities: Normal Inspection, Normal Range of Motion, Non-Tender, No Pedal Edema, Normal Capillary Refill, Other (Mild edema noted in hands) Peripheral Pulses: 3+: Radial (L), Radial (R), Dorsalis Pedis (L), Dorsalis Pedis (R) Skin: Warm, Dry, Intact Neurological: No New Focal Deficit Psy/Mental Status: Alert, Normal Affect, Normal Mood - Patient Data Lab Results Last 24 hrs: Laboratory Results - last 24 hr 02/15/21 02/15/21 02/15/21 Range/Units 07:00 07:00 07:00 WBC 7.31 (3.98-10.04) K/mm3 RBC 1.77 L (3.98-5.22) M/mm3 Hgb 5.5 L* D (11.2-15.7) gm/dl Hct 16.6 L (34.1-44.9) % MCV 93.8 (79.4-94.8) fl MCH 31.1 (25.6-32.2) pg MCHC 33.1 (32.2-35.5) g/dl RDW Std Deviation 42.5 (36.4-46.3) fL Plt Count 244 (182-369) K/mm3 MPV 10.2 (9.4-12.3) fl Neut % (Auto) 55.6 (34.0-71.1) % Lymph % (Auto) 38.0 (19.3-51.7) % [place] % (Auto) 5.2 (4.7-12.5) % Eos % (Auto) 0.7 (0.7-5.8) Baso % (Auto) 0.1 (0.1-1.2) % Neut # (Auto) 4.06 (1.56-6.13) K/mm3 Lymph # (Auto) 2.78 (1.18-3.74) K/mm3 [place] # (Auto) 0.38 H (0.24-0.36) K/mm3 Eos # (Auto) 0.05 (0.04-0.36) K/mm3 Baso # (Auto) 0.01 (0.01-0.08) K/mm3 PT 10.9 (9.7-12.0) SECONDS INR 0.98 APTT < 20.0 L (21.7-31.4) SECONDS Sodium 143 (136-145) mEq/L Potassium 3.5 (3.5-5.1) mEq/L Chloride 110 H (98-107) mEq/L Carbon Dioxide 23 (21-32) mEq/L Anion Gap 13.5 (5-15) BUN 26 H (7-18) mg/dL Creatinine 0.8 (0.55-1.02) mg/dL Est Cr Clr Drug Dosing 64.95 mL/min Estimated GFR (MDRD) > 60 (>60) mL/min BUN/Creatinine Ratio 32.5 H (14-18) Glucose 168 H (70-99) mg/dL Calcium 8.2 L (8.5-10.1) mg/dL Total Bilirubin 0.2 (0.2-1.0) mg/dL AST 11 L (15-37) U/L ALT 14 (14-59) U/L Alkaline Phosphatase 36 L (46-116) U/L Total Protein 4.8 L (6.4-8.2) g/dl Albumin 2.7 L (3.4-5.0) g/dl Globulin 2.1 gm/dL Albumin/Globulin Ratio 1.3 (1-2) SARS-CoV-2 RNA (BROWN) (NEGATIVE) Blood Type Gel Antibody Screen Crossmatch 02/15/21 02/15/21 02/15/21 Range/Units 07:00 07:55 17:20 WBC 6.12 (3.98-10.04) K/mm3 RBC 2.30 L (3.98-5.22) M/mm3 Hgb 6.9 L* (11.2-15.7) gm/dl Hct 20.7 L (34.1-44.9) % MCV 90.0 D (79.4-94.8) fl MCH 30.0 (25.6-32.2) pg MCHC 33.3 (32.2-35.5) g/dl RDW Std Deviation 43.3 (36.4-46.3) fL Plt Count 150 L D (182-369) K/mm3 MPV 9.9 (9.4-12.3) fl Neut % (Auto) 50.8 (34.0-71.1) % Lymph % (Auto) 43.0 (19.3-51.7) % [place] % (Auto) 5.6 (4.7-12.5) % Eos % (Auto) 0.2 L (0.7-5.8) Baso % (Auto) 0.2 (0.1-1.2) % Neut # (Auto) 3.12 (1.56-6.13) K/mm3 Lymph # (Auto) 2.63 (1.18-3.74) K/mm3 [place] # (Auto) 0.34 (0.24-0.36) K/mm3 Eos # (Auto) 0.01 L (0.04-0.36) K/mm3 Baso # (Auto) 0.01 (0.01-0.08) K/mm3 PT (9.7-12.0) SECONDS INR APTT (21.7-31.4) SECONDS Sodium (136-145) mEq/L Potassium (3.5-5.1) mEq/L Chloride (98-107) mEq/L Carbon Dioxide (21-32) mEq/L Anion Gap (5-15) BUN (7-18) mg/dL Creatinine (0.55-1.02) mg/dL Est Cr Clr Drug Dosing mL/min Estimated GFR (MDRD) (>60) mL/min BUN/Creatinine Ratio (14-18) Glucose (70-99) mg/dL Calcium (8.5-10.1) mg/dL Total Bilirubin (0.2-1.0) mg/dL AST (15-37) U/L ALT (14-59) U/L Alkaline Phosphatase (46-116) U/L Total Protein (6.4-8.2) g/dl Albumin (3.4-5.0) g/dl Globulin gm/dL Albumin/Globulin Ratio (1-2) SARS-CoV-2 RNA (BROWN) Negative (NEGATIVE) Blood Type O POSITIVE Gel Antibody Screen Negative Crossmatch See Detail 02/16/21 Range/Units 05:20 WBC 4.81 (3.98-10.04) K/mm3 RBC 2.99 L (3.98-5.22) M/mm3 Hgb 8.9 L D (11.2-15.7) gm/dl Hct 26.3 L (34.1-44.9) % MCV 88.0 (79.4-94.8) fl MCH 29.8 (25.6-32.2) pg MCHC 33.8 (32.2-35.5) g/dl RDW Std Deviation 43.7 (36.4-46.3) fL Plt Count 155 L (182-369) K/mm3 MPV 10.3 (9.4-12.3) fl Neut % (Auto) 52.7 (34.0-71.1) % Lymph % (Auto) 39.7 (19.3-51.7) % [place] % (Auto) 6.4 (4.7-12.5) % Eos % (Auto) 0.6 L (0.7-5.8) Baso % (Auto) 0.2 (0.1-1.2) % Neut # (Auto) 2.53 (1.56-6.13) K/mm3 Lymph # (Auto) 1.91 (1.18-3.74) K/mm3 [place] # (Auto) 0.31 (0.24-0.36) K/mm3 Eos # (Auto) 0.03 L (0.04-0.36) K/mm3 Baso # (Auto) 0.01 (0.01-0.08) K/mm3 PT (9.7-12.0) SECONDS INR APTT (21.7-31.4) SECONDS Sodium (136-145) mEq/L Potassium (3.5-5.1) mEq/L Chloride (98-107) mEq/L Carbon Dioxide (21-32) mEq/L Anion Gap (5-15) BUN (7-18) mg/dL Creatinine (0.55-1.02) mg/dL Est Cr Clr Drug Dosing mL/min Estimated GFR (MDRD) (>60) mL/min BUN/Creatinine Ratio (14-18) Glucose (70-99) mg/dL Calcium (8.5-10.1) mg/dL Total Bilirubin (0.2-1.0) mg/dL AST (15-37) U/L ALT (14-59) U/L Alkaline Phosphatase (46-116) U/L Total Protein (6.4-8.2) g/dl Albumin (3.4-5.0) g/dl Globulin gm/dL Albumin/Globulin Ratio (1-2) SARS-CoV-2 RNA (BROWN) (NEGATIVE) Blood Type Gel Antibody Screen Crossmatch Result Diagrams: 02/16/21 05:20 02/16/21 05:20 Sepsis Event Note - Evaluation Sepsis Screening Result: No Definite Risk - Focused Exam Vital Signs: Vital Signs Temp Temp Pulse Resp BP Pulse Ox 02/16/21 03:56 97.4 F 78 16 121/77 96 02/15/21 23:57 97.2 F 14 100/65 97 02/15/21 23:47 97.9 F 14 106/70 98 02/15/21 22:17 97.8 F 14 93/65 98 02/15/21 22:02 98.2 F 16 94/61 97 02/15/21 21:34 97.5 F 14 91/64 94 L 02/15/21 21:00 97.5 F 84 18 90/50 L 97 02/15/21 20:01 97.9 F 100 H 98/62 02/15/21 20:00 98.1 F 16 101/66 100 02/15/21 19:46 98.1 F 16 101/66 100 - Problem List & Annotations (1) Hypokalemia SNOMED Code(s): 26185561 Code(s): E87.6 - HYPOKALEMIA Status: Acute Priority: High Current Visit: Yes (2) Hypomagnesemia SNOMED Code(s): 420139155 Code(s): E83.42 - HYPOMAGNESEMIA Status: Acute Priority: High Current Visit: Yes (3) GI bleed due to NSAIDs SNOMED Code(s): 10932885 Code(s): K92.2 - GASTROINTESTINAL HEMORRHAGE, UNSPECIFIED; T39.395A - ADVERSE EFFECT OF NONSTEROIDAL ANTI-INFLAMMATORY DRUGS, INIT Status: Acute Priority: High Current Visit: Yes (4) Low back pain SNOMED Code(s): 570782088 Code(s): M54.5 - LOW BACK PAIN * DO NOT USE * Status: Chronic Priority: Low Current Visit: No Qualifiers: Chronicity: chronic Back pain laterality: midline Sciatica presence: without sciatica Qualified Code(s): M54.50 - Low back pain, unspecified; G89.29 - Other chronic pain (5) Hypothyroidism SNOMED Code(s): 34534400 Code(s): E03.9 - HYPOTHYROIDISM, UNSPECIFIED Status: Chronic Priority: Low Current Visit: No Qualifiers: Hypothyroidism type: unspecified Qualified Code(s): E03.9 - Hypothyroidism, unspecified (6) Anemia SNOMED Code(s): 958880571 Code(s): D64.9 - ANEMIA, UNSPECIFIED Status: Acute Priority: High Current Visit: Yes Qualifiers: Anemia type: other cause Other causes of anemia: other cause, not classified Qualified Code(s): D64.89 - Other specified anemias - Problem List Review Problem List Initiated/Reviewed/Updated: Yes - Assessment Assessment:: 02/16/2021 55-year-old female admitted to the floor with GI bleed secondary to excessive NSAID use for back pain and headaches. Hemoglobin on admission was 5.5 and patient was started on IV fluids and given 4 units of packed red cells. Patient hemoglobin is now 8.9 with hematocrit of 26.3. She continues to have some melena although her frequency has greatly improved. Dr. Onofre, general surgeon was consulted and does not feel endoscopy is warranted at this time. Patient will require outpatient EGD and colonoscopy. She is on a clear liquid diet. Sodium today is 146. Potassium is down to 3.2. Chloride 113. Carbon dioxide 25. Anion gap is 11.2. BUN is 11. Creatinine 0.8. GFR greater than 60. Glucose is 96. Magnesium 1.7. We will supplement her magnesium and her potassium via IV route due to likely upper GI source of bleeding and concerns over irritation. Patient is reporting back pain and has required some IV push Dilaudid. We will resume her home tramadol. We will repeat H&H at 1300 to ensure stability. Overall patient reports she feels much better. Hopeful for discharge tomorrow pending continued stability. - Plan Plan:: 55-year-old female with a past medical history as mentioned above who presents to the emergency department with likely upper GI bleeding in the setting of excessive NSAID use. 1. Acute blood loss anemia. Secondary to GI bleed. Suspect upper source. Admit to the hospital service with GI consult for comanagement. S/P 4 units PRBC Goal is 7 g/dL of hemoglobin. Dr. Onofre consulted and does not feel patient requires endoscopy at this time Continue with Protonix infusion. Will consider Carafate. Dual IV access. Continue crystalloid - decrease rate and discontinue this PM. Monitor CBCs and further transfusions as necessary. Repeat H&H today at 1300 If not performed inpatient patient will require outpatient endoscopy. Clear liquid diet for now 2. GI bleeding. Likely secondary to NSAID use. Suspect upper source. Plan as above. 3. Hypothyroidism. Continue [place] Thyroid at home dose. 4. Hypokalemia Supplement IV Recheck a.m. labs 5. Hypomagnesemia Supplement IV Recheck a.m. labs 6. Chronic back pain Resume home as needed tramadol Continue to monitor All other medical comorbidities are stable and nonactive conditions. Will hold unnecessary medications at current time and will reinstate when patient is taking p.o. and more safe to do so. CODE STATUS: Full code. PCP: Denise Dalal PA-C DVT prophylaxis mechanically in the setting of bleeding. Disposition: Likely discharge in 1 to 2 days pending labs. <Amauri Thorne Jr - Last Filed: 02/17/21 07:08> - Patient Data Vitals - Most Recent: Last Vital Signs Temp 97.2 F 02/17/21 04:00 Pulse 82 02/17/21 04:00 Resp 16 02/17/21 04:00 BP 90/55 L 02/17/21 04:00 Pulse Ox 100 02/17/21 04:00 I&O - Last 24 Hours: Intake & Output 02/16/21 02/17/21 02/17/21 22:59 06:59 14:59 Intake Total 1850 673 Output Total 1025 Balance 1850 -352 Lab Results Last 24 Hours: Laboratory Results - last 24 hr 02/16/21 02/16/21 02/16/21 Range/Units 05:20 05:20 12:58 WBC (3.98-10.04) K/mm3 RBC (3.98-5.22) M/mm3 Hgb 10.1 L (11.2-15.7) gm/dl Hct 29.6 L (34.1-44.9) % MCV (79.4-94.8) fl MCH (25.6-32.2) pg MCHC (32.2-35.5) g/dl RDW Std Deviation (36.4-46.3) fL Plt Count (182-369) K/mm3 MPV (9.4-12.3) fl Neut % (Auto) (34.0-71.1) % Lymph % (Auto) (19.3-51.7) % [place] % (Auto) (4.7-12.5) % Eos % (Auto) (0.7-5.8) Baso % (Auto) (0.1-1.2) % Neut # (Auto) (1.56-6.13) K/mm3 Lymph # (Auto) (1.18-3.74) K/mm3 [place] # (Auto) (0.24-0.36) K/mm3 Eos # (Auto) (0.04-0.36) K/mm3 Baso # (Auto) (0.01-0.08) K/mm3 Sodium 146 H (136-145) mEq/L Potassium 3.2 L (3.5-5.1) mEq/L Chloride 113 H (98-107) mEq/L Carbon Dioxide 25 (21-32) mEq/L Anion Gap 11.2 (5-15) BUN 11 (7-18) mg/dL Creatinine 0.8 (0.55-1.02) mg/dL Est Cr Clr Drug Dosing 64.93 mL/min Estimated GFR (MDRD) > 60 (>60) mL/min BUN/Creatinine Ratio 13.8 L (14-18) Glucose 96 (70-99) mg/dL Calcium 8.0 L (8.5-10.1) mg/dL Magnesium 1.7 L (1.8-2.4) mg/dL 02/17/21 Range/Units 05:55 WBC 3.57 L (3.98-10.04) K/mm3 RBC 3.20 L (3.98-5.22) M/mm3 Hgb 9.4 L (11.2-15.7) gm/dl Hct 28.6 L (34.1-44.9) % MCV 89.4 (79.4-94.8) fl MCH 29.4 (25.6-32.2) pg MCHC 32.9 (32.2-35.5) g/dl RDW Std Deviation 47.0 H (36.4-46.3) fL Plt Count 182 (182-369) K/mm3 MPV 9.6 (9.4-12.3) fl Neut % (Auto) 51.3 (34.0-71.1) % Lymph % (Auto) 34.7 (19.3-51.7) % [place] % (Auto) 10.9 (4.7-12.5) % Eos % (Auto) 3.1 (0.7-5.8) Baso % (Auto) 0.0 L (0.1-1.2) % Neut # (Auto) 1.83 (1.56-6.13) K/mm3 Lymph # (Auto) 1.24 (1.18-3.74) K/mm3 [place] # (Auto) 0.39 H (0.24-0.36) K/mm3 Eos # (Auto) 0.11 (0.04-0.36) K/mm3 Baso # (Auto) 0.00 L (0.01-0.08) K/mm3 Sodium (136-145) mEq/L Potassium (3.5-5.1) mEq/L Chloride (98-107) mEq/L Carbon Dioxide (21-32) mEq/L Anion Gap (5-15) BUN (7-18) mg/dL Creatinine (0.55-1.02) mg/dL Est Cr Clr Drug Dosing mL/min Estimated GFR (MDRD) (>60) mL/min BUN/Creatinine Ratio (14-18) Glucose (70-99) mg/dL Calcium (8.5-10.1) mg/dL Magnesium (1.8-2.4) mg/dL Med Orders - Current: Current Medications Acetaminophen (Acetaminophen 325 Mg Tab) 650 mg PO Q4H PRN PRN Reason: Pain (Mild 1-3)/fever Last Admin: 02/16/21 00:24 Dose: 650 mg Documented by: Pantoprazole Sodium 80 mg/ (Sodium Chloride) 100 mls @ 10 mls/hr IV Q10H MEENA Last Admin: 02/17/21 00:27 Dose: 10 mls/hr Documented by: Lactated Ringer's (Ringers, Lactated) 1,000 mls @ 75 mls/hr IV ASDIRECTED MEENA Thyroid,Pork [[place] Thyroid] 90 Mg Tablet Ptom 90 mg PO DAILY [facility] Sodium Chloride (Sodium Chloride 0.9% 10 Ml Syringe) 10 ml FLUSH ASDIRECTED PRN PRN Reason: Keep Vein Open Tramadol HCl (Tramadol 50 Mg Tab) 50 mg PO TID PRN PRN Reason: Pain Last Admin: 02/16/21 13:34 Dose: 50 mg Documented by: Discontinued Medications Hydromorphone HCl (Hydromorphone 0.5 Mg/0.5 Ml Syringe) 0.5 mg IVPUSH ONETIME ONE Stop: 02/15/21 08:40 Last Admin: 02/15/21 08:40 Dose: 0.5 mg Documented by: Hydromorphone HCl (Hydromorphone 0.5 Mg/0.5 Ml Syringe) Confirm Administered Dose 0.5 mg .ROUTE .STK-MED ONE Stop: 02/15/21 08:42 Last Admin: 02/15/21 08:46 Dose: Not Given Documented by: Hydromorphone HCl (Hydromorphone 0.5 Mg/0.5 Ml Syringe) 0.5 mg IVPUSH ONETIME ONE Stop: 02/15/21 14:17 Last Admin: 02/15/21 14:23 Dose: 0.5 mg Documented by: Hydromorphone HCl (Hydromorphone 1 Mg/Ml Syringe) 1 mg IVPUSH ONETIME ONE Stop: 02/16/21 03:29 Last Admin: 02/16/21 03:47 Dose: 1 mg Documented by: Hydromorphone HCl (Hydromorphone 0.5 Mg/0.5 Ml Syringe) 0.5 mg IVPUSH ONETIME ONE Stop: 02/16/21 23:25 Last Admin: 02/16/21 23:34 Dose: 0.5 mg Documented by: Sodium Chloride (Normal Saline) 1,000 mls @ 1,000 mls/hr IV ONETIME ONE Stop: 02/15/21 08:40 Last Admin: 02/15/21 07:44 Dose: 1,000 mls/hr Documented by: Lactated Ringer's (Ringers, Lactated) 1,000 mls @ 125 mls/hr IV ASDIRECTED MEENA Last Admin: 02/16/21 04:55 Dose: 125 mls/hr Documented by: Sodium Chloride (Normal Saline) 500 mls @ 25 mls/hr IV STAT STA Stop: 02/16/21 15:18 Last Admin: 02/15/21 19:45 Dose: 25 mls/hr Documented by: Potassium Chloride 10 meq/ (Premix) 100 mls @ 100 mls/hr IV Q1H MEENA Stop: 02/16/21 11:44 Last Admin: 02/16/21 11:45 Dose: 100 mls/hr Documented by: Magnesium Sulfate 2 gm/ Premix 50 mls @ 25 mls/hr IV ONETIME ONE Stop: 02/16/21 10:57 Last Admin: 02/16/21 09:24 Dose: 25 mls/hr Documented by: Metoclopramide HCl (Metoclopramide 10 Mg/2 Ml Sdv) 10 mg IVPUSH ONETIME ONE Stop: 02/15/21 08:31 Last Admin: 02/15/21 08:32 Dose: 10 mg Documented by: Thyroid,Pork [[place] Thyroid] 90 Mg Tablet Ptom 90 mg PO DAILY [facility] Ondansetron HCl (Ondansetron 4 Mg/2 Ml Sdv) 4 mg IVPUSH ONETIME ONE Stop: 02/15/21 07:17 Last Admin: 02/15/21 07:20 Dose: 4 mg Documented by: Pantoprazole Sodium (Pantoprazole 40 Mg Vial) 80 mg IVPUSH BOLUS ONE Stop: 02/15/21 07:49 Last Admin: 02/15/21 08:21 Dose: 80 mg Documented by: Sodium Chloride (Sodium Chloride 0.9% 10 Ml Syringe) 10 ml FLUSH ASDIRECTED PRN PRN Reason: Keep Vein Open Last Admin: 02/15/21 07:22 Dose: 10 ml Documented by: Thyroid (Thyroid 60 Mg Tab) 90 mg PO ONETIME ONE Stop: 02/16/21 09:01 Last Admin: 02/16/21 08:42 Dose: 90 mg Documented by: - Patient Data Lab Results Last 24 hrs: Laboratory Results - last 24 hr 02/16/21 02/16/21 02/16/21 Range/Units 05:20 05:20 12:58 WBC (3.98-10.04) K/mm3 RBC (3.98-5.22) M/mm3 Hgb 10.1 L (11.2-15.7) gm/dl Hct 29.6 L (34.1-44.9) % MCV (79.4-94.8) fl MCH (25.6-32.2) pg MCHC (32.2-35.5) g/dl RDW Std Deviation (36.4-46.3) fL Plt Count (182-369) K/mm3 MPV (9.4-12.3) fl Neut % (Auto) (34.0-71.1) % Lymph % (Auto) (19.3-51.7) % [place] % (Auto) (4.7-12.5) % Eos % (Auto) (0.7-5.8) Baso % (Auto) (0.1-1.2) % Neut # (Auto) (1.56-6.13) K/mm3 Lymph # (Auto) (1.18-3.74) K/mm3 [place] # (Auto) (0.24-0.36) K/mm3 Eos # (Auto) (0.04-0.36) K/mm3 Baso # (Auto) (0.01-0.08) K/mm3 Sodium 146 H (136-145) mEq/L Potassium 3.2 L (3.5-5.1) mEq/L Chloride 113 H (98-107) mEq/L Carbon Dioxide 25 (21-32) mEq/L Anion Gap 11.2 (5-15) BUN 11 (7-18) mg/dL Creatinine 0.8 (0.55-1.02) mg/dL Est Cr Clr Drug Dosing 64.93 mL/min Estimated GFR (MDRD) > 60 (>60) mL/min BUN/Creatinine Ratio 13.8 L (14-18) Glucose 96 (70-99) mg/dL Calcium 8.0 L (8.5-10.1) mg/dL Magnesium 1.7 L (1.8-2.4) mg/dL 02/17/21 Range/Units 05:55 WBC 3.57 L (3.98-10.04) K/mm3 RBC 3.20 L (3.98-5.22) M/mm3 Hgb 9.4 L (11.2-15.7) gm/dl Hct 28.6 L (34.1-44.9) % MCV 89.4 (79.4-94.8) fl MCH 29.4 (25.6-32.2) pg MCHC 32.9 (32.2-35.5) g/dl RDW Std Deviation 47.0 H (36.4-46.3) fL Plt Count 182 (182-369) K/mm3 MPV 9.6 (9.4-12.3) fl Neut % (Auto) 51.3 (34.0-71.1) % Lymph % (Auto) 34.7 (19.3-51.7) % [place] % (Auto) 10.9 (4.7-12.5) % Eos % (Auto) 3.1 (0.7-5.8) Baso % (Auto) 0.0 L (0.1-1.2) % Neut # (Auto) 1.83 (1.56-6.13) K/mm3 Lymph # (Auto) 1.24 (1.18-3.74) K/mm3 [place] # (Auto) 0.39 H (0.24-0.36) K/mm3 Eos # (Auto) 0.11 (0.04-0.36) K/mm3 Baso # (Auto) 0.00 L (0.01-0.08) K/mm3 Sodium (136-145) mEq/L Potassium (3.5-5.1) mEq/L Chloride (98-107) mEq/L Carbon Dioxide (21-32) mEq/L Anion Gap (5-15) BUN (7-18) mg/dL Creatinine (0.55-1.02) mg/dL Est Cr Clr Drug Dosing mL/min Estimated GFR (MDRD) (>60) mL/min BUN/Creatinine Ratio (14-18) Glucose (70-99) mg/dL Calcium (8.5-10.1) mg/dL Magnesium (1.8-2.4) mg/dL Result Diagrams: 02/17/21 05:55 02/16/21 05:20 Sepsis Event Note - Focused Exam Vital Signs: Vital Signs Temp Pulse Resp BP Pulse Ox 02/17/21 04:00 97.2 F 82 16 90/55 L 100 02/17/21 00:00 97.9 F 69 16 101/67 100 02/16/21 20:00 98.2 F 72 15 97/60 98 - My Orders Last 24 Hours: My Active Orders 02/17/21 05:55 BASIC METABOLIC PANEL,BMP [CHEM] DAILY 02/17/21 09:00 Thyroid,Pork [[place] Thyroid] 90 mg PO DAILY 02/18/21 06:00 BASIC METABOLIC PANEL,BMP [CHEM] DAILY CBC WITH AUTO DIFF [HEME] DAILY - Plan Plan:: Case discussed in full. Agree with evaluation, assessment and plan. -Tom Clifton Jr., DO
[2021-02-16] MEDS: Potassium Chloride 10 MEQ in Premix Bag 1 BAG IV SCH ×4 (08:21→11:45)
[2021-02-16] MEDS ORDERED: Magnesium Sulfate/Water 2 GM in Premix Bag 1 BAG IV ONE (08:58)
[2021-02-16] MEDS ORDERED: Thyroid 60 MG Tab PO ONE (09:00)
[2021-02-16] MEDS ORDERED: THYROID PORK 90 MG PO SCH (09:00)
[2021-02-16] MEDS ORDERED: Lactated Ringers 1,000 ML IV SCH (09:15)
[2021-02-16] MEDS: traMADol 50 MG Tab PO PRN (13:34)
[2021-02-16] MEDS ORDERED: HYDROmorphone 0.5 MG/0.5 ML Syringe IVPUSH ONE (23:24)
[2021-02-17] MEDS: Pantoprazole 80 MG in Sodium Chloride 0.9% 100 ML IV SCH (00:27)
[2021-02-17 07:32] VITALS: BP 98/74; PULSE 72
[2021-02-17] MEDS: Potassium Chloride 10 MEQ in Premix Bag 1 BAG IV SCH ×4 (07:55→11:34)
[2021-02-17] MEDS ORDERED: Sodium Chloride 0.9% 1,000 ML IV SCH (08:00)
[2021-02-17] MEDS: traMADol 50 MG Tab PO PRN (08:34)
[2021-02-17] MEDS ORDERED: Thyroid 60 MG Tab PO SCH (09:00)
[2021-02-17] MEDS ORDERED: THYROID PORK 90 MG PO SCH (09:00)
--- NOTE | 2021-02-17 09:08 | PCM.DCSUM1 ---
<Pablito Diaz - Last Filed: 02/17/21 09:08> Discharge Summary - Hospital Course HPI Initial Comments: Is a 55-year-old female with a past medical history as listed below presents to the emergency department for the second day in a row due to concerns of GI bleeding. The patient has been suffering from a toothache for the past better part of a week. She received Augmentin from a colleague to treat empirically for possible dental infection, however due to the pain, she started taking ibuprofen. She endorses a history of 800 mg at least 3 times to 4 times a day for the past better part of a week. She started to notice black and occasional bright red stools starting yesterday. She was seen in the emergency department for this yesterday. Hemoglobin was above transfusion threshold. The patient was initially referred for admission however the patient did not want to be admitted. She continued to produce bloody stools. She vomited this morning which showed signs of hematemesis. She has become more pale than yesterday. She presents with her today for ongoing signs of GI bleeding. She was found to be tachycardic however blood pressure was acceptable. There was hematemesis noted in the emergency department upon intake. Hemoglobin had a notable drop down to 5.5. Patient has been referred to the surgery team as well as the internal medicine team for ongoing comanagement of likely acute upper GI bleeding in the setting of NSAID use. Transfusion has already begun in the emergency department. The surgery team is requested 2 units packed red blood cells before endoscopic evaluation. Patient was loaded with Protonix 80 mg and on my order was started on a Protonix infusion in the emergency department immediately. She has received some narcotics for epigastric discomfort which is apparently been bothering her as well for the past better part of a week. Patient endorses only the history of bleeding and diffuse weakness and pallor. A 14 point review of systems was reviewed entirely and only pertinent for the above information. CODE STATUS: Full code. Diagnosis: Stroke: No - Discharge Data Discharge Date: 02/17/21 (Admit date: 02/15/2021) Discharge Disposition: Home, Self-Care 01 Condition: Good - Referral to Home Health Primary Care Physician: Denise Dalal PA-C - Discharge Diagnosis/Problem(s) (1) Hypokalemia SNOMED Code(s): 82085362 ICD Code: E87.6 - HYPOKALEMIA Status: Acute Priority: High (2) Hypomagnesemia SNOMED Code(s): 628773329 ICD Code: E83.42 - HYPOMAGNESEMIA Status: Acute Priority: High (3) GI bleed due to NSAIDs SNOMED Code(s): 19575240 ICD Code: K92.2 - GASTROINTESTINAL HEMORRHAGE, UNSPECIFIED; T39.395A - ADVERSE EFFECT OF NONSTEROIDAL ANTI-INFLAMMATORY DRUGS, INIT Status: Resolved Priority: High (4) Low back pain SNOMED Code(s): 185610004 ICD Code: M54.5 - LOW BACK PAIN * DO NOT USE * Status: Chronic Priority: Low Qualifiers: Chronicity: chronic Back pain laterality: midline Sciatica presence: without sciatica Qualified Code(s): M54.50 - Low back pain, unspecified; G89.29 - Other chronic pain (5) Hypothyroidism SNOMED Code(s): 18976600 ICD Code: E03.9 - HYPOTHYROIDISM, UNSPECIFIED Status: Chronic Priority: Low Qualifiers: Hypothyroidism type: unspecified Qualified Code(s): E03.9 - Hypothyroidism, unspecified (6) Anemia SNOMED Code(s): 081224901 ICD Code: D64.9 - ANEMIA, UNSPECIFIED Status: Acute Priority: High Qualifiers: Anemia type: other cause Other causes of anemia: other cause, not classified Qualified Code(s): D64.89 - Other specified anemias - Patient Summary/Data Consults: Consultations 02/16/21 08:59 Consult to Physician [CONS] Routine Labs Pending at D/C: None Recommended Follow-up Testing/Procedures: Follow-up with primary care provider within 5 to 7 days of discharge, sooner if needed. * Recommend recheck CBC, CMP, and magnesium in follow-up. Pay close attention to patient's hemoglobin, potassium, and magnesium * Patient's potassium was low while here and was supplemented via IV route. Unfortunately with her presumed gastric ulcers p.o. is not a good option. She was instructed to eat potassium containing foods for the next few days. * Recommend outpatient EGD and colonoscopy in the near future. * Patient instructed to stop taking NSAIDs * Discharged on daily Protonix and 3 times daily AC Carafate. * Prior home medications were continued with the exception of the patient's Augmentin, NSAIDs and H2 gloria Recommend follow-up with general surgery/GI for outpatient EGD and colonoscopy Hospital Course: This is a 55-year-old female who presented to ED twice prior to admission with GI bleeding. Patient believes it was likely secondary to taking significant amounts of NSAIDs for back pain and headache. She also reportedly has a toothache for which she has been taking Augmentin for. She was instructed to follow-up with dentistry however she has not done this yet. In the ED hemoglobin was noted to be 5.5 with a substantial drop from the day prior. Patient was transfused 4 units of packed red cells and given IV fluids. Surgery was consulted. She was given an 80 mg Protonix bolus and started on a Protonix drip. Initial plan was for EGD however patient's symptoms appeared to resolve and her hemoglobin did stabilize. Dr. Onofre, general surgeon recommends outpatient EGD and colonoscopy, however she does not feel inpatient procedures are warranted at this time. During her stay patient's melenic stool did resolve and her epigastric pain subsided. Her magnesium was low and was supplemented. Potassium was also low and was supplemented via IV route due to concerns over stomach irritation with p.o. She was instructed to eat high potassium containing foods and follow-up with her primary care provider regarding her hypokalemia for repeat blood draw. She will be discharged on daily 40 mg p.o. Protonix and Carafate 3 times daily AC 1 g. She was instructed to discontinue her NSAIDs and avoid spicy foods. She was instructed to return the emergency room or contact her primary care provider should symptoms return or worsen, especially epigastric pain or bloody or melenic stools. Recommend follow-up with primary care provider within 5 to 7 days of discharge, sooner if needed. Recommend repeat CBC, CMP, and magnesium in follow-up. Pay special attention to patient's hemoglobin, potassium, and magnesium as all were low while here. Patient's home NSAID, Augmentin, and H2 gloria were discontinued prior to discharge. Patient requested a work note and she may return to work on 02/22/2021 without restriction. Overall she is doing well. Discharged home today. - Patient Instructions Diet: Usual Diet as Tolerated Activity: As Tolerated Driving: Do Not Drive (today) Showering/Bathing: May Shower Notify Provider of: Fever, Increased Pain, Nausea and/or Vomiting Other/Special Instructions: Follow-up with primary care provider within 5 to 7 days of discharge, sooner if needed. Stop taking NSAIDs until directed otherwise by your health care provider. Recommend outpatient EGD/colonoscopy. Your potassium was low here and was supplemented via IV route. Unfortunately potassium can be quite hard on your stomach when given via oral route. You were given a list of foods containing potassium. Raisins are a great source of potassium. Recommend you follow-up with your primary care provider regarding this. Resume home medications as directed. You should continue Protonix daily and discontinue your H2 gloria. You are also given Carafate which you should take 3 times a day with meals. Continue this and Protonix until directed otherwise by your primary care provider. You may notice some faint blackness to your stool as the blood in your colon works its way out. Contact primary care provider return the emergency room should symptoms return or worsen. Symptoms of concern would be worsening stomach pain, bloody stool, or continued or worsening black coffee-ground stool. - Discharge Plan *PRESCRIPTION DRUG MONITORING PROGRAM REVIEWED*: No *COPY OF PRESCRIPTION DRUG MONITORING REPORT IN PATIENT MIGUEL: No Prescriptions/Med Rec: Sucralfate [Carafate] 1 gm PO TIDAC #60 tablet Pantoprazole [ProTONIX] 40 mg PO DAILY #30 tab.cr Home Medications: Home Meds Thyroid,Pork [[place] Thyroid] 90 mg PO DAILY 05/18/14 [History] traMADol [Ultram] 50 mg PO TID PRN 05/18/14 [History] Aspirin/Acetaminophen/Caffeine [Headache Relief Gelcap] 1 tab PO ASDIRECTED PRN 02/14/21 [History] Brimonidine [Alphagan P 0.1% Ophth Soln] 1 drop EYEBOTH BEDTIME 02/14/21 [Hist ory] Pantoprazole [ProTONIX] 40 mg PO DAILY #30 tab.cr 02/17/21 [Rx] Sucralfate [Carafate] 1 gm PO TIDAC #60 tablet 02/17/21 [Rx] Oxygen Therapy Mode: Room Air Patient Handouts: Upper Gastrointestinal Bleeding, Anemia, Hypokalemia, Potassium Content of Foods Referrals: Dahiana Lovett MD [Physician] - 03/03/21 1:15 pm (this is your check in time for a 13:30 appointment, bring insurance cards and photo ID.) Denise Dalal PA-C [Primary Care Provider] - 02/24/21 9:40 am (This is your check in time for the appointment) - Discharge Summary/Plan Comment DC Time >30 min.: No Total # of Minutes for Discharge Time: 29 - General Info Date of Service: 02/17/21 Admission Dx/Problem (Free Text: Admission Diagnosis/Problem Admission Diagnosis/Problem GI bleed not requiring more than 4 units of blood in 24 hours, ICU, or surgery Functional Status: Reports: Pain Controlled, Tolerating Diet, Ambulating, Urinating. Denies: New Symptoms - Review of Systems General: Reports: Weakness (Improving ). Denies: Fever, Fatigue, Malaise, Chills HEENT: Reports: No Symptoms. Denies: Headaches, Sore Throat Pulmonary: Reports: No Symptoms. Denies: Shortness of Breath, Cough, Sputum, Wheezing Cardiovascular: Reports: No Symptoms. Denies: Chest Pain, Palpitations, Dyspnea on Exertion, Edema Gastrointestinal: Reports: No Symptoms. Denies: Abdominal Pain, Constipation, Decreased Appetite, Diarrhea, Difficulty Swallowing, Hematochezia, Melena, Nausea, Vomiting Genitourinary: Reports: No Symptoms. Denies: Pain Musculoskeletal: Reports: Back Pain (Chronic ) Skin: Reports: No Symptoms. Denies: Cyanosis Neurological: Reports: No Symptoms, Weakness. Denies: Confusion, Dizziness, Headache, Numbness, Pre-Existing Deficit, Seizure, Syncope, Tingling, Difficulty Walking, Gait Disturbance Psychiatric: Reports: No Symptoms - Patient Data Vitals - Most Recent: Last Vital Signs Temp 96.2 F L 02/17/21 07:31 Pulse 72 02/17/21 07:31 Resp 16 02/17/21 07:31 BP 98/74 02/17/21 07:31 Pulse Ox 98 02/17/21 07:31 Weight - Most Recent: 158 lb 14.4 oz I&O - Last 24 hours: Intake & Output 02/16/21 02/17/21 02/17/21 22:59 06:59 14:59 Intake Total 1850 673 Output Total 1025 Balance 1850 -352 Lab Results - Last 24 hrs: Laboratory Results - last 24 hr 02/16/21 02/17/21 02/17/21 Range/Units 12:58 05:55 05:55 WBC 3.57 L (3.98-10.04) K/mm3 RBC 3.20 L (3.98-5.22) M/mm3 Hgb 10.1 L 9.4 L (11.2-15.7) gm/dl Hct 29.6 L 28.6 L (34.1-44.9) % MCV 89.4 (79.4-94.8) fl MCH 29.4 (25.6-32.2) pg MCHC 32.9 (32.2-35.5) g/dl RDW Std Deviation 47.0 H (36.4-46.3) fL Plt Count 182 (182-369) K/mm3 MPV 9.6 (9.4-12.3) fl Neut % (Auto) 51.3 (34.0-71.1) % Lymph % (Auto) 34.7 (19.3-51.7) % Dare % (Auto) 10.9 (4.7-12.5) % Eos % (Auto) 3.1 (0.7-5.8) Baso % (Auto) 0.0 L (0.1-1.2) % Neut # (Auto) 1.83 (1.56-6.13) K/mm3 Lymph # (Auto) 1.24 (1.18-3.74) K/mm3 Dare # (Auto) 0.39 H (0.24-0.36) K/mm3 Eos # (Auto) 0.11 (0.04-0.36) K/mm3 Baso # (Auto) 0.00 L (0.01-0.08) K/mm3 Sodium 142 (136-145) mEq/L Potassium 3.1 L (3.5-5.1) mEq/L Chloride 109 H (98-107) mEq/L Carbon Dioxide 27 (21-32) mEq/L Anion Gap 9.1 (5-15) BUN 7 (7-18) mg/dL Creatinine 0.9 (0.55-1.02) mg/dL Est Cr Clr Drug Dosing 57.72 mL/min Estimated GFR (MDRD) > 60 (>60) mL/min BUN/Creatinine Ratio 7.8 L (14-18) Glucose 102 H (70-99) mg/dL Calcium 7.8 L (8.5-10.1) mg/dL Magnesium (1.8-2.4) mg/dL 02/17/21 Range/Units 05:55 WBC (3.98-10.04) K/mm3 RBC (3.98-5.22) M/mm3 Hgb (11.2-15.7) gm/dl Hct (34.1-44.9) % MCV (79.4-94.8) fl MCH (25.6-32.2) pg MCHC (32.2-35.5) g/dl RDW Std Deviation (36.4-46.3) fL Plt Count (182-369) K/mm3 MPV (9.4-12.3) fl Neut % (Auto) (34.0-71.1) % Lymph % (Auto) (19.3-51.7) % Dare % (Auto) (4.7-12.5) % Eos % (Auto) (0.7-5.8) Baso % (Auto) (0.1-1.2) % Neut # (Auto) (1.56-6.13) K/mm3 Lymph # (Auto) (1.18-3.74) K/mm3 Dare # (Auto) (0.24-0.36) K/mm3 Eos # (Auto) (0.04-0.36) K/mm3 Baso # (Auto) (0.01-0.08) K/mm3 Sodium (136-145) mEq/L Potassium (3.5-5.1) mEq/L Chloride (98-107) mEq/L Carbon Dioxide (21-32) mEq/L Anion Gap (5-15) BUN (7-18) mg/dL Creatinine (0.55-1.02) mg/dL Est Cr Clr Drug Dosing mL/min Estimated GFR (MDRD) (>60) mL/min BUN/Creatinine Ratio (14-18) Glucose (70-99) mg/dL Calcium (8.5-10.1) mg/dL Magnesium 2.0 (1.8-2.4) mg/dL Med Orders - Current: Current Medications Acetaminophen (Acetaminophen 325 Mg Tab) 650 mg PO Q4H PRN PRN Reason: Pain (Mild 1-3)/fever Last Admin: 02/16/21 00:24 Dose: 650 mg Documented by: Pantoprazole Sodium 80 mg/ (Sodium Chloride) 100 mls @ 10 mls/hr IV Q10H [facility] Stop: 02/17/21 10:30 Last Admin: 02/17/21 00:27 Dose: 10 mls/hr Documented by: Potassium Chloride 10 meq/ (Premix) 100 mls @ 100 mls/hr IV Q1H [facility] Stop: 02/17/21 11:59 Last Admin: 02/17/21 07:55 Dose: 100 mls/hr Documented by: Sodium Chloride (Normal Saline) 1,000 mls @ 75 mls/hr IV ASDIRECTED MEENA Last Admin: 02/17/21 07:54 Dose: 75 mls/hr Documented by: Pantoprazole Sodium (Pantoprazole 40 Mg Tab.Cr) 40 mg PO BIDAC [facility] Sodium Chloride (Sodium Chloride 0.9% 10 Ml Syringe) 10 ml FLUSH ASDIRECTED PRN PRN Reason: Keep Vein Open Sucralfate (Sucralfate 1 Gm Tab) 1 gm PO TIDAC [facility] Thyroid (Thyroid 60 Mg Tab) 90 mg PO DAILY [facility] Last Admin: 02/17/21 08:34 Dose: 90 mg Documented by: Tramadol HCl (Tramadol 50 Mg Tab) 50 mg PO TID PRN PRN Reason: Pain Last Admin: 02/17/21 08:34 Dose: 50 mg Documented by: Discontinued Medications Hydromorphone HCl (Hydromorphone 0.5 Mg/0.5 Ml Syringe) 0.5 mg IVPUSH ONETIME ONE Stop: 02/15/21 08:40 Last Admin: 02/15/21 08:40 Dose: 0.5 mg Documented by: Hydromorphone HCl (Hydromorphone 0.5 Mg/0.5 Ml Syringe) Confirm Administered Dose 0.5 mg .ROUTE .STK-MED ONE Stop: 02/15/21 08:42 Last Admin: 02/15/21 08:46 Dose: Not Given Documented by: Hydromorphone HCl (Hydromorphone 0.5 Mg/0.5 Ml Syringe) 0.5 mg IVPUSH ONETIME ONE Stop: 02/15/21 14:17 Last Admin: 02/15/21 14:23 Dose: 0.5 mg Documented by: Hydromorphone HCl (Hydromorphone 1 Mg/Ml Syringe) 1 mg IVPUSH ONETIME ONE Stop: 02/16/21 03:29 Last Admin: 02/16/21 03:47 Dose: 1 mg Documented by: Hydromorphone HCl (Hydromorphone 0.5 Mg/0.5 Ml Syringe) 0.5 mg IVPUSH ONETIME ONE Stop: 02/16/21 23:25 Last Admin: 02/16/21 23:34 Dose: 0.5 mg Documented by: Sodium Chloride (Normal Saline) 1,000 mls @ 1,000 mls/hr IV ONETIME ONE Stop: 02/15/21 08:40 Last Admin: 02/15/21 07:44 Dose: 1,000 mls/hr Documented by: Lactated Ringer's (Ringers, Lactated) 1,000 mls @ 125 mls/hr IV ASDIRECTED [facility] Last Admin: 02/16/21 04:55 Dose: 125 mls/hr Documented by: Sodium Chloride (Normal Saline) 500 mls @ 25 mls/hr IV STAT STA Stop: 02/16/21 15:18 Last Admin: 02/15/21 19:45 Dose: 25 mls/hr Documented by: Potassium Chloride 10 meq/ (Premix) 100 mls @ 100 mls/hr IV Q1H [facility] Stop: 02/16/21 11:44 Last Admin: 02/16/21 11:45 Dose: 100 mls/hr Documented by: Magnesium Sulfate 2 gm/ Premix 50 mls @ 25 mls/hr IV ONETIME ONE Stop: 02/16/21 10:57 Last Admin: 02/16/21 09:24 Dose: 25 mls/hr Documented by: Lactated Ringer's (Ringers, Lactated) 1,000 mls @ 75 mls/hr IV ASDIRECTED [facility] Metoclopramide HCl (Metoclopramide 10 Mg/2 Ml Sdv) 10 mg IVPUSH ONETIME ONE Stop: 02/15/21 08:31 Last Admin: 02/15/21 08:32 Dose: 10 mg Documented by: Thyroid,Pork [[place] Thyroid] 90 Mg Tablet Ptom 90 mg PO DAILY [facility] Thyroid,Pork [[place] Thyroid] 90 Mg Tablet Ptom 90 mg PO DAILY [facility] Ondansetron HCl (Ondansetron 4 Mg/2 Ml Sdv) 4 mg IVPUSH ONETIME ONE Stop: 02/15/21 07:17 Last Admin: 02/15/21 07:20 Dose: 4 mg Documented by: Pantoprazole Sodium (Pantoprazole 40 Mg Vial) 80 mg IVPUSH BOLUS ONE Stop: 02/15/21 07:49 Last Admin: 02/15/21 08:21 Dose: 80 mg Documented by: Sodium Chloride (Sodium Chloride 0.9% 10 Ml Syringe) 10 ml FLUSH ASDIRECTED PRN PRN Reason: Keep Vein Open Last Admin: 02/15/21 07:22 Dose: 10 ml Documented by: Thyroid (Thyroid 60 Mg Tab) 90 mg PO ONETIME ONE Stop: 02/16/21 09:01 Last Admin: 02/16/21 08:42 Dose: 90 mg Documented by: - Exam Quality Assessment: Reports: DVT Prophylaxis. Denies: Supplemental Oxygen, Urine Catheter General: Reports: Alert, Oriented, Cooperative, No Acute Distress HEENT: Reports: Pupils Equal, Pupils Reactive, Mucous Membr. Moist/[place] Neck: Reports: Supple, Trachea Midline Lungs: Reports: Clear to Auscultation, Normal Respiratory Effort Cardiovascular: Reports: Regular Rate, Regular Rhythm GI/Abdominal Exam: Normal Bowel Sounds, Soft, Non-Tender, No Distention (Female) Exam: Deferred Rectal (Female) Exam: Deferred Back Exam: Reports: Normal Inspection, Full Range of Motion Extremities: Normal Inspection, Normal Range of Motion, Non-Tender, No Pedal Edema, Normal Capillary Refill Skin: Reports: Warm, Dry, Intact Neurological: Reports: No New Focal Deficit Psy/Mental Status: Reports: Alert, Normal Affect, Normal Mood *Q Meaningful Use (DIS) - VTE *Q VTE Pharmacological Contraindications *Q: Active Hemorrhage VTE Anticoagulation Contraindications: Medical/Procedure Contrai <Amauri Thorne Jr - Last Filed: 02/17/21 12:49> Discharge Summary - Referral to Home Health Primary Care Physician: Denise Dalal PA-C - Patient Summary/Data Consults: Consultations 02/16/21 08:59 Consult to Physician [CONS] Routine - Discharge Summary/Plan Comment Discharge Summary/Plan Comment: Case discussed in full. Agree with evaluation, assessment and plan. -Tom Clifton Jr. DO - Patient Data Vitals - Most Recent: Last Vital Signs Temp 96.2 F L 02/17/21 07:31 Pulse 72 02/17/21 07:31 Resp 16 02/17/21 07:31 BP 98/74 02/17/21 07:31 Pulse Ox 98 02/17/21 07:31 I&O - Last 24 hours: Intake & Output 02/16/21 02/17/21 02/17/21 22:59 06:59 14:59 Intake Total 1850 673 760 Output Total 1025 750 Balance 1850 -352 10 Lab Results - Last 24 hrs: Laboratory Results - last 24 hr 02/16/21 02/17/21 02/17/21 Range/Units 12:58 05:55 05:55 WBC 3.57 L (3.98-10.04) K/mm3 RBC 3.20 L (3.98-5.22) M/mm3 Hgb 10.1 L 9.4 L (11.2-15.7) gm/dl Hct 29.6 L 28.6 L (34.1-44.9) % MCV 89.4 (79.4-94.8) fl MCH 29.4 (25.6-32.2) pg MCHC 32.9 (32.2-35.5) g/dl RDW Std Deviation 47.0 H (36.4-46.3) fL Plt Count 182 (182-369) K/mm3 MPV 9.6 (9.4-12.3) fl Neut % (Auto) 51.3 (34.0-71.1) % Lymph % (Auto) 34.7 (19.3-51.7) % Dare % (Auto) 10.9 (4.7-12.5) % Eos % (Auto) 3.1 (0.7-5.8) Baso % (Auto) 0.0 L (0.1-1.2) % Neut # (Auto) 1.83 (1.56-6.13) K/mm3 Lymph # (Auto) 1.24 (1.18-3.74) K/mm3 Dare # (Auto) 0.39 H (0.24-0.36) K/mm3 Eos # (Auto) 0.11 (0.04-0.36) K/mm3 Baso # (Auto) 0.00 L (0.01-0.08) K/mm3 Sodium 142 (136-145) mEq/L Potassium 3.1 L (3.5-5.1) mEq/L Chloride 109 H (98-107) mEq/L Carbon Dioxide 27 (21-32) mEq/L Anion Gap 9.1 (5-15) BUN 7 (7-18) mg/dL Creatinine 0.9 (0.55-1.02) mg/dL Est Cr Clr Drug Dosing 57.72 mL/min Estimated GFR (MDRD) > 60 (>60) mL/min BUN/Creatinine Ratio 7.8 L (14-18) Glucose 102 H (70-99) mg/dL Calcium 7.8 L (8.5-10.1) mg/dL Magnesium (1.8-2.4) mg/dL 02/17/21 Range/Units 05:55 WBC (3.98-10.04) K/mm3 RBC (3.98-5.22) M/mm3 Hgb (11.2-15.7) gm/dl Hct (34.1-44.9) % MCV (79.4-94.8) fl MCH (25.6-32.2) pg MCHC (32.2-35.5) g/dl RDW Std Deviation (36.4-46.3) fL Plt Count (182-369) K/mm3 MPV (9.4-12.3) fl Neut % (Auto) (34.0-71.1) % Lymph % (Auto) (19.3-51.7) % Dare % (Auto) (4.7-12.5) % Eos % (Auto) (0.7-5.8) Baso % (Auto) (0.1-1.2) % Neut # (Auto) (1.56-6.13) K/mm3 Lymph # (Auto) (1.18-3.74) K/mm3 Dare # (Auto) (0.24-0.36) K/mm3 Eos # (Auto) (0.04-0.36) K/mm3 Baso # (Auto) (0.01-0.08) K/mm3 Sodium (136-145) mEq/L Potassium (3.5-5.1) mEq/L Chloride (98-107) mEq/L Carbon Dioxide (21-32) mEq/L Anion Gap (5-15) BUN (7-18) mg/dL Creatinine (0.55-1.02) mg/dL Est Cr Clr Drug Dosing mL/min Estimated GFR (MDRD) (>60) mL/min BUN/Creatinine Ratio (14-18) Glucose (70-99) mg/dL Calcium (8.5-10.1) mg/dL Magnesium 2.0 (1.8-2.4) mg/dL Med Orders - Current: Current Medications Acetaminophen (Acetaminophen 325 Mg Tab) 650 mg PO Q4H PRN PRN Reason: Pain (Mild 1-3)/fever Last Admin: 02/16/21 00:24 Dose: 650 mg Documented by: Sodium Chloride (Normal Saline) 1,000 mls @ 75 mls/hr IV ASDIRECTED [facility]EE[facility] Last Admin: 02/17/21 07:54 Dose: 75 mls/hr Documented by: Pantoprazole Sodium (Pantoprazole 40 Mg Tab.Cr) 40 mg PO BIDAC [facility] Sodium Chloride (Sodium Chloride 0.9% 10 Ml Syringe) 10 ml FLUSH ASDIRECTED PRN PRN Reason: Keep Vein Open Sucralfate (Sucralfate 1 Gm Tab) 1 gm PO TIDAC [facility] Last Admin: 02/17/21 11:34 Dose: 1 gm Documented by: Thyroid (Thyroid 60 Mg Tab) 90 mg PO DAILY [facility] Last Admin: 02/17/21 08:34 Dose: 90 mg Documented by: Tramadol HCl (Tramadol 50 Mg Tab) 50 mg PO TID PRN PRN Reason: Pain Last Admin: 02/17/21 08:34 Dose: 50 mg Documented by: Discontinued Medications Hydromorphone HCl (Hydromorphone 0.5 Mg/0.5 Ml Syringe) 0.5 mg IVPUSH ONETIME ONE Stop: 02/15/21 08:40 Last Admin: 02/15/21 08:40 Dose: 0.5 mg Documented by: Hydromorphone HCl (Hydromorphone 0.5 Mg/0.5 Ml Syringe) Confirm Administered Dose 0.5 mg .ROUTE .STK-MED ONE Stop: 02/15/21 08:42 Last Admin: 02/15/21 08:46 Dose: Not Given Documented by: Hydromorphone HCl (Hydromorphone 0.5 Mg/0.5 Ml Syringe) 0.5 mg IVPUSH ONETIME ONE Stop: 02/15/21 14:17 Last Admin: 02/15/21 14:23 Dose: 0.5 mg Documented by: Hydromorphone HCl (Hydromorphone 1 Mg/Ml Syringe) 1 mg IVPUSH ONETIME ONE Stop: 02/16/21 03:29 Last Admin: 02/16/21 03:47 Dose: 1 mg Documented by: Hydromorphone HCl (Hydromorphone 0.5 Mg/0.5 Ml Syringe) 0.5 mg IVPUSH ONETIME ONE Stop: 02/16/21 23:25 Last Admin: 02/16/21 23:34 Dose: 0.5 mg Documented by: Sodium Chloride (Normal Saline) 1,000 mls @ 1,000 mls/hr IV ONETIME ONE Stop: 02/15/21 08:40 Last Admin: 02/15/21 07:44 Dose: 1,000 mls/hr Documented by: Pantoprazole Sodium 80 mg/ (Sodium Chloride) 100 mls @ 10 mls/hr IV Q10H [facility] Stop: 02/17/21 10:30 Last Admin: 02/17/21 00:27 Dose: 10 mls/hr Documented by: Lactated Ringer's (Ringers, Lactated) 1,000 mls @ 125 mls/hr IV ASDIRECTED [facility] Last Admin: 02/16/21 04:55 Dose: 125 mls/hr Documented by: Sodium Chloride (Normal Saline) 500 mls @ 25 mls/hr IV STAT STA Stop: 02/16/21 15:18 Last Admin: 02/15/21 19:45 Dose: 25 mls/hr Documented by: Potassium Chloride 10 meq/ (Premix) 100 mls @ 100 mls/hr IV Q1H [facility] Stop: 02/16/21 11:44 Last Admin: 02/16/21 11:45 Dose: 100 mls/hr Documented by: Magnesium Sulfate 2 gm/ Premix 50 mls @ 25 mls/hr IV ONETIME ONE Stop: 02/16/21 10:57 Last Admin: 02/16/21 09:24 Dose: 25 mls/hr Documented by: Lactated Ringer's (Ringers, Lactated) 1,000 mls @ 75 mls/hr IV ASDIRECTED [facility] Potassium Chloride 10 meq/ (Premix) 100 mls @ 100 mls/hr IV Q1H [facility] Stop: 02/17/21 11:59 Last Admin: 02/17/21 11:34 Dose: 100 mls/hr Documented by: Metoclopramide HCl (Metoclopramide 10 Mg/2 Ml Sdv) 10 mg IVPUSH ONETIME ONE Stop: 02/15/21 08:31 Last Admin: 02/15/21 08:32 Dose: 10 mg Documented by: Thyroid,Pork [[place] Thyroid] 90 Mg Tablet Ptom 90 mg PO DAILY MEENA Thyroid,Pork [[place] Thyroid] 90 Mg Tablet Ptom 90 mg PO DAILY [facility] Ondansetron HCl (Ondansetron 4 Mg/2 Ml Sdv) 4 mg IVPUSH ONETIME ONE Stop: 02/15/21 07:17 Last Admin: 02/15/21 07:20 Dose: 4 mg Documented by: Pantoprazole Sodium (Pantoprazole 40 Mg Vial) 80 mg IVPUSH BOLUS ONE Stop: 02/15/21 07:49 Last Admin: 02/15/21 08:21 Dose: 80 mg Documented by: Sodium Chloride (Sodium Chloride 0.9% 10 Ml Syringe) 10 ml FLUSH ASDIRECTED PRN PRN Reason: Keep Vein Open Last Admin: 02/15/21 07:22 Dose: 10 ml Documented by: Thyroid (Thyroid 60 Mg Tab) 90 mg PO ONETIME ONE Stop: 02/16/21 09:01 Last Admin: 02/16/21 08:42 Dose: 90 mg Documented by:
[2021-02-17] MEDS ORDERED: Sucralfate 1 GM Tab PO SCH (11:00)
[2021-02-17] MEDS ORDERED: Pantoprazole 40 MG Tab.CR PO SCH (16:00)
== END 2021-02-17 12:38 | disposition home or self-care (01) | DRG 253 ==
LOC: JD.ED 06:47 → JD.ICU 08:32
PROVIDERS: ADMIT Hospitalist; ATTEND Hospitalist
PROC: 30233N1 Transfusion of Nonautologous Red Blood Cells into Peripheral Vein, Percutaneous Approach (ICD-10-PCS; principal; 2021-02-15)
DX: K92.2 Gastrointestinal hemorrhage, unspecified (principal); D62 Acute posthemorrhagic anemia; R00.0 Tachycardia, unspecified; E87.6 Hypokalemia; E83.42 Hypomagnesemia; T39.395A Adverse effect of other nonsteroidal anti-inflammatory drugs [NSAID], initial encounter; M54.50 Low back pain, unspecified; G89.29 Other chronic pain; E03.9 Hypothyroidism, unspecified; D64.89 Other specified anemias; H54.7 Unspecified visual loss; M19.90 Unspecified osteoarthritis, unspecified site; M54.2 Cervicalgia; Z20.822 Contact with and (suspected) exposure to COVID-19; G43.909 Migraine, unspecified, not intractable, without status migrainosus; Z85.850 Personal history of malignant neoplasm of thyroid; Z79.82 Long term (current) use of aspirin; Z79.899 Other long term (current) drug therapy; Z88.5 Allergy status to narcotic agent; Z88.8 Allergy status to other drugs, medicaments and biological substances; Z88.2 Allergy status to sulfonamides; Z90.49 Acquired absence of other specified parts of digestive tract; Z98.51 Tubal ligation status
CPT/HCPCS: 36415; 36430; 80048; 80053; 83735; 85014; 85018; 85025; 85610; 85730; 86850; 86900; 86901; 86922; 99284; A9270-GY; C9113; J1170; J2405; J2765; J3475; J3480; J7030; J7120; P9016; U0002

== ENCOUNTER 2021-03-11 10:03 | Day surgery (SDC) | payer BC ==
[~2021-03-11 10:03] MED LIST: Lactated Ringers 1,000 ML IV SCH; Lidocaine 1%/Sod Bicarbonate in NS 8.4% 1 ML Syringe IDERM PRN; Midazolam 1 MG/ML 2 ML SDV ONE; Propofol 200 MG/20 ML SDV ONE; Sodium Chloride 0.9% 10 ML Syringe FLUSH SCH
--- NOTE | 2021-03-11 10:26 | PCM.PREANE ---
Preanesthetic Assessment - Procedure Proposed Procedure: EGD and colonoscopy - Anesthesia/Transfusion/Family Hx Anesthesia History: Prior Anesthesia Reaction Other Type of Anesthesia Reaction Comment: nausea Family History of Anesthesia Reaction: No Transfusion History: No Prior Transfusion(s) Intubation History: Unknown - Review of Systems General: No Symptoms Pulmonary: No Symptoms Cardiovascular: No Symptoms Gastrointestinal: Diarrhea (prep-induced) Neurological: No Symptoms Other: Reports: Thyroid Problems - Physical Assessment NPO Status Date: 03/10/21 NPO Status Time: 23:30 Vital Signs: Last Vital Signs Temp 97.6 F 03/11/21 09:15 Pulse 80 03/11/21 09:15 Resp 16 03/11/21 09:15 BP 128/95 H 03/11/21 09:15 Pulse Ox 100 03/11/21 09:15 Height: 1.6 m Weight: 59.421 kg ASA Class: 2 Mental Status: Alert & Oriented x3 Airway Class: Mallampati = 2 Dentition: Reports: [place](s), [place] Thyro-Mental Finger Breadths: 3 Mouth Opening Finger Breadths: 3 ROM/Head Extension: Full Lungs: Clear to Auscultation, Normal Respiratory Effort Cardiovascular: Regular Rate, Regular Rhythm, No Murmurs - Lab Values: Labs reviewed and okay to proceed - Allergies Allergies/Adverse Reactions: Allergies Allergy/AdvReac Type Severity Reaction Status Date / Time codeine Allergy Anaphylactic Verified 03/11/21 10:00 Shock hydrocodone Allergy Anaphylactic Verified 03/11/21 10:00 Shock oxycodone Allergy Anaphylactic Verified 03/11/21 10:00 Shock pseudoephedrine Allergy Cannot Verified 03/11/21 10:00 Remember diphenhydramine HCl AdvReac Excitabilit Verified 03/11/21 10:00 [From Benadryl] y promethazine HCl AdvReac Excitabilit Verified 03/11/21 10:00 [From Phenergan] y Sulfa (Sulfonamide AdvReac Excitabilit Verified 03/11/21 10:00 Antibiotics) y - Acknowledgements Anesthesia Type Planned: MAC Pt an Appropriate Candidate for the Planned Anesthesia: Yes Alternatives and Risks of Anesthesia Discussed w Pt/Guardian: Yes Pt/Guardian Understands and Agrees with Anesthesia Plan: Yes PreAnesthesia Questionnaire HEENT History: Reports: Impaired Vision, Other (See Below) Other HEENT History: wear contacts Cardiovascular History: Reports: None Respiratory History: Reports: None Gastrointestinal History: Reports: GI Bleed Genitourinary History: Reports: Other (See Below) Other Genitourinary History: kidney surgery BASKET PERSON History: Reports: Musculoskeletal History: Reports: Arthritis, Back Pain, Chronic, Neck Pain, Chronic, Osteoporosis Neurological History: Reports: Migraines, Other (See Below) Other Neuro History: radiculopathy of thoracolumbar region Psychiatric History: Reports: Anxiety Endocrine/Metabolic History: Reports: Hypothyroidism Other Endocrine/Metabolic History: thyroid CA Hematologic History: Reports: None Immunologic History: Reports: None Oncologic (Cancer) History: Reports: Thyroid Dermatologic History: Reports: None - Infectious Disease History Infectious Disease History: Reports: None - Past Surgical History Head Surgeries/Procedures: Reports: None Cardiovascular Surgical History: Reports: None Respiratory Surgical History: Reports: None GI Surgical History: Reports: Cholecystectomy Female Surgical History: Reports: Endometrial Ablation, Tubal Ligation, Other (See Below) (kidney surgery) Endocrine Surgical History: Reports: Thyroidectomy Neurological Surgical History: Reports: None Musculoskeletal Surgical History: Reports: Other (See Below) (left hip surgery) Oncologic Surgical History: Reports: None Dermatological Surgical History: Reports: None - SUBSTANCE USE Tobacco Use Status *Q: Never Tobacco User Tobacco Use Within Last Twelve Months: No Second Hand Smoke Exposure: No Days Per Week of Alcohol Use: 0 Number of Drinks Per Day: 0 Total Drinks Per Week: 0 Recreational Drug Use History: No - HOME MEDS Home Medications: Home Meds Thyroid,Pork [[place] Thyroid] 90 mg PO DAILY 05/18/14 [History] traMADol [Ultram] 50 mg PO TID PRN 05/18/14 [History] Aspirin/Acetaminophen/Caffeine [Headache Relief Gelcap] 1 tab PO ASDIRECTED PRN 02/14/21 [History] Brimonidine [Alphagan P 0.1% Ophth Soln] 1 drop EYEBOTH BEDTIME 02/14/21 [History] Pantoprazole [ProTONIX] 40 mg PO DAILY #30 tab.cr 02/17/21 [Rx] Sucralfate [Carafate] 1 gm PO TIDAC #60 tablet 02/17/21 [Rx] Acetaminophen [Tylenol] 650 mg PO Q4H PRN 03/10/21 [History] - CURRENT (IN HOUSE) MEDS Current Meds: Current Medications Lactated Ringer's (Ringers, Lactated) 1,000 mls @ 125 mls/hr IV ASDIRECTED [facility] Stop: 03/11/21 23:00 Last Admin: 03/11/21 10:00 Dose: 125 mls/hr Documented by: Lidocaine/Sodium Bicarbonate (Lidocaine 1%/Sod Bicarbonate In Ns 8.4% 1 Ml Syringe) 0.25 ml IDERM ONETIME PRN PRN Reason: Prior to IV Start Stop: 03/11/21 18:00 Sodium Chloride (Sodium Chloride 0.9% 10 Ml Syringe) 10 ml FLUSH 0900,2100 [facility] Stop: 03/11/21 18:00 Discontinued Medications Midazolam HCl (Midazolam 1 Mg/Ml 2 Ml Sdv) Confirm Administered Dose 2 mg .ROUTE .STK-MED ONE Stop: 03/11/21 09:58 Propofol (Propofol 200 Mg/20 Ml Sdv) Confirm Administered Dose 400 mg .ROUTE .STK-MED ONE Stop: 03/11/21 09:57
[2021-03-11] MEDS ORDERED: Midazolam 1 MG/ML 2 ML SDV ONE (11:56)
[2021-03-11] MEDS ORDERED: Lidocaine 1% 4 ML ONE (12:39)
[2021-03-11] MEDS ORDERED: Propofol 200 MG/20 ML SDV ONE ×2 (12:39→12:53)
--- NOTE | 2021-03-11 13:31 | PCM.PRNOTE ---
- Free Text/Narrative Note: Operative Report Date of Procedure: March 11, 2021 Pre Op Diagnosis: GI bleed, melena, need for colon cancer screening Post-Op Diagnosis: Same Operative Procedures: 1. EGD with biopsy 2. Colonoscopy to the cecum with biopsy Primary Surgeon: Dahiana Lovett MD Anesthesia Provider: Alyssa Flores CRNA Anesthesia Technique: MAC IV Fluid Replacement, Intraop: 700cc crystalloid Output, Urine Amount: 0cc EBL in mLs: 0cc Findings: 1. Gastritis 2. Duodenitis 3. Hiatal hernia 4. Abnormal colon mucosa 5. Internal hemorrhoids Specimens: 1. Duodenal biopsy 2. Antrum biopsy 3. Rectosigmoid biopsy Drain/Tubes: None Indication: The patient is a 55-year-old lady who presented to the clinic for follow-up after hospitalization and recent GI bleed. The patient reported symptoms of ongoing fatigue and dizziness. She has never had a colonoscopy the patient was consented for a diagnostic EGD and colonoscopy. Risks of bleeding, and perforation were discussed, and the patient agreed to the risks and wished to proceed. Description of the procedure: The patient was taken back to the endoscopy suite, and placed in the left lateral decubitus position. A bite block was placed. The patient was sedated with MAC anesthesia. The Olympus video endoscope was inserted into the oropharynx and guided under direct vision into the esophagus, stomach, and duodenum. The duodenal bulb was erythematous and friable and second portion of the duodenum was unremarkable. The duodenal bulb was biopsied with a cold biopsy forceps. The gastric antrum was inspected and cold biopsy forceps were used to take tissue samples for H. pylori. There was patchy erythema throughout the stomach as well as friability and contact bleeding. The scope was withdrawn to the stomach and retroflexed. There was no increased fluid, food or secretions in the upper gastrointestinal tract. No erosions or ulcers were noted. The scope was withdrawn to the esophagus. A this point we noted a 2 cm sliding hiatal hernia. Barretts esophagus changes were noted. The endoscope was then withdrawn. Next, anorectal examination was performed. No lesions, masses or hemorrhoids were noted externally or on palpation. The scope was placed into the rectum and advanced to cecum. Upon reaching the cecum, and the patients cecum was entered . There was some tortuosity of the colon requiring application of external abdominal pressure. The ileocecal valve was well visualized and the appendiceal orifice identified. At this point, the scope was slowly withdrawn, paying attention to the mucosa. The patient had a good bowel prep. Brown spotted, abnormal appearing mucosa was noted in the sigmoid and rectum. This was biopsied using cold biopsy forceps. In the rectum, scope was retroflexed and some hemorrhoidal tissue was noted. The scope was placed back in the lumen and excess air was aspirated. The scope was removed. The patient tolerated the procedure very well. Complications: None apparent Condition: The patient was transported to PACU in stable condition. Dahiana Lovett MD General Surgery
--- NOTE | 2021-03-11 13:31 | PCM.OPNOTE ---
- General Post-Op/Procedure Note Date of Surgery/Procedure: 03/11/21 Operative Procedure(s): EGD and colonoscopy Findings: 1. Gastritis 2. Duodenitis 3. Hiatal hernia 4. Abnormal colon mucosa 5. Internal hemorrhoids Pre Op Diagnosis: GI bleed, melena, need for screening colonoscopy Post-Op Diagnosis: same Anesthesia Technique: COCO Primary Surgeon: Dahiana Lovett Anesthesia Provider: Alyssa Flores Pathology: 1. Duodenal biopsy 2. Antrum biopsy 3. Rectosigmoid biopsy Fluid Replacement, Intraop: 700 Output, Urine Amount: 0 EBL in mLs: 0 Complications: none apparent Condition: Good
--- NOTE | 2021-03-11 13:32 | PCM48HPAN ---
Post Anesthesia Note - EVALUATION WITHIN 48HRS OF ANESTHETIC Vital Signs in Normal Range: Yes Patient Participated in Evaluation: Yes Respiratory Function Stable: Yes Airway Patent: Yes Cardiovascular Function Stable: Yes Hydration Status Stable: Yes Pain Control Satisfactory: Yes Nausea and Vomiting Control Satisfactory: Yes Mental Status Recovered: Yes Vital Signs: Last Vital Signs Temp 97.6 F 03/11/21 09:15 Pulse 80 03/11/21 09:15 Resp 16 03/11/21 09:15 BP 128/95 H 03/11/21 09:15 Pulse Ox 100 03/11/21 09:15 Vital signs at 1327: 126/77 HR 88 99% RA RR 12 98.4
[2021-03-11 14:03] VITALS: BP 140/90; PULSE 77
== END 2021-03-11 13:50 | disposition home or self-care (01) ==
LOC: JD.SDS 10:03
PROVIDERS: ATTEND Surgery
DX: K92.1 Melena (principal); K29.50 Unspecified chronic gastritis without bleeding; K29.80 Duodenitis without bleeding; K44.9 Diaphragmatic hernia without obstruction or gangrene; K64.8 Other hemorrhoids; K21.9 Gastro-esophageal reflux disease without esophagitis; M81.0 Age-related osteoporosis without current pathological fracture; G43.909 Migraine, unspecified, not intractable, without status migrainosus; E03.9 Hypothyroidism, unspecified; Z79.890 Hormone replacement therapy; Z98.890 Other specified postprocedural states; Z79.899 Other long term (current) drug therapy; Z88.5 Allergy status to narcotic agent; Z88.8 Allergy status to other drugs, medicaments and biological substances; Z88.2 Allergy status to sulfonamides
CPT/HCPCS: 36415; 43239; 45380; 85025; 86850; 86900; 86901; J2250; J2704; J7120; 00813